=== PATIENT | male | born 1970 | race Caucasian/White ===

== ENCOUNTER 2021-08-25 11:39 | Outpatient (REF) | payer MEDICARE, MEDICAID, SELFPAY ==
[2021-08-25 12:26] LABS: COVID-19 Test Negative (Negative); IDNOW Serial# 08D9AD1C
== END 2021-08-25 11:40 | disposition home or self-care (01) ==
LOC: HO.LAB 11:39
PROVIDERS: Visit Provider Internal Medicine
DX: Z20.822 Contact with and (suspected) exposure to COVID-19 (principal)
CPT/HCPCS: 87635; C9803

== ENCOUNTER 2021-09-07 07:38 | Outpatient (REF) | payer MEDICARE, MEDICAID, SELFPAY ==
[2021-09-07 10:56] LABS: Alanine Aminotransferase 54 U/L (0-40); Albumin Level 4.4 g/dL (3.5-5.0); Alkaline Phosphatase 117 U/L (39-117); Anion Gap 12 (12-20); Aspartate Amino Transferase 35 U/L (5-37); Bilirubin Total 0.5 mg/dL (0.0-1.0); Blood Urea Nitrogen 14 mg/dL (9-16); Calcium 8.9 mg/dL (8.4-10.2); Carbon Dioxide 29 mmol/L (22-29); Chloride 101 mmol/L (96-108); Cholesterol 218 mg/dL; Estimated Glomerular Filt Rate 55; Glucose Fasting 83 mg/dL (60-99); HDL Cholesterol 58 mg/dL; LDL Cholesterol Calculated 142 mg/dl; Potassium 3.6 mmol/L (3.3-5.1); Sodium 138 mmol/L (135-145); Triglycerides 93 mg/dL
[2021-09-07 11:18] LABS: Prostate Specific Antigen 0.51 ng/mL (<0.05-4.0)
== END 2021-09-07 07:39 | disposition home or self-care (01) ==
LOC: HO.10HDL 07:38
PROVIDERS: PCP Physician Assistant; Visit Provider Nurse Practitioner Family
DX: Z13.1 Encounter for screening for diabetes mellitus (principal); Z12.5 Encounter for screening for malignant neoplasm of prostate; Z13.220 Encounter for screening for lipoid disorders
CPT/HCPCS: 36415; 80053; 80061; 84153

== ENCOUNTER 2021-09-28 11:21 | Day surgery (SDC) | payer MEDICARE, MEDICAID, SELFPAY ==
[2021-09-20 13:29] VITALS: BMI 25.0
--- NOTE | 2021-09-27 08:53 | HO.ANESPROP2 ---
Documented by User: Yenny Webster NP 09/27/21 08:54 HPI - Anesthesia Eval Consult details Narrative: 51yo M for Colonoscopy PMFSH Active Problems Active Problems: All Active Problems (Updated 09/20/21 @ 13:31 by Jessy Masters RN) Hypertension (Acute) OCD (obsessive compulsive disorder) (Acute) Anxiety (Acute) Adult general medical exam (Acute) Respiratory tract infection (Acute) Herpes simplex (Acute) Screening for prostate cancer (Acute) Screening for hyperlipidemia (Acute) Screening for colon cancer (Acute) Screening for diabetes mellitus (Acute) Past Medical History Medical History (Updated 09/20/21 @ 13:31 by Jessy Masters RN) Anxiety Asthma COVID-19 vaccine series completed HTN (hypertension) OCD (obsessive compulsive disorder) Recurrent cold sores Screening for colon cancer Screening for diabetes mellitus Screening for hyperlipidemia Screening for prostate cancer Family History Family History Father No problems noted. Mother No problems noted. Other Mental health disorder Surgical History Surgical History (Updated 09/20/21 @ 13:14 by Jessy Masters RN) History of esophagogastroduodenoscopy (EGD) Social History Social History Housing: House Alcohol intake: former Patient Tobacco Use Status: Former Tobacco user Quit Date: 1998 Tobacco use type: Cigarette Years Smoked: 10 Use of substances other than those prescribed or required for medical reasons: No Have you been hit, kicked, punched, or otherwise hurt by someone within the past year? If so, by whom?: No Are you DNR?: No Advance Directives: No Advance Directives Information Provided: Yes (brochure mailed) Advance Directives on File: No Recently lost weight without trying: No Eating poorly because of decreased appetite: No Nutrition Risks: No Nutritional Risk Poor oral hygiene: No (has dental crowns) service: No Current occupational status: unemployed and disabled Meds Allergies Allergy/AdvReac Type Severity Reaction Status Date / Time erythromycin base Allergy Intermediate Gastrointestinal Verified 09/20/21 13:27 Upset Penicillins Allergy Intermediate Hives Verified 09/20/21 13:27 Home Medications Medication Instructions Recorded Confirmed Last Taken Type buspirone 30 mg tablet 30 mg PO BID 12/08/20 09/28/21 09/28/21 History cholecalciferol (vitamin D3) 25 25 mcg PO DAILY 12/08/20 09/20/21 Unknown History mcg (1,000 unit) capsule clomipramine 25 mg capsule 25 mg PO BID 12/08/20 09/28/21 09/28/21 History clomipramine 75 mg capsule 150 mg PO BEDTIME 12/08/20 09/20/21 Unknown History fluvoxamine 100 mg tablet 250 mg PO DAILY 12/08/20 09/28/21 09/28/21 History hydroxyzine HCl 25 mg tablet 25 mg PO BID 12/08/20 09/20/21 Unknown History melatonin 3 mg tablet 3 mg PO BEDTIME PRN 12/08/20 09/20/21 Unknown History quetiapine 25 mg tablet 25 mg PO BEDTIME PRN 12/08/20 09/20/21 Unknown History quetiapine 400 mg tablet 400 mg PO BEDTIME 07/21/21 09/20/21 Unknown History Exam Exam Date and Time: September 27, 2021 0853 Height,Weight and Vital Signs: Height 5 ft 7.5 in Weight 73.482 kg Pertinent Lab Results Pertinent Lab Results: Laboratory Tests 09/07/21 07:45 Sodium 138 Potassium 3.6 Chloride 101 Carbon Dioxide 29 BUN 14 Creatinine 1.37 Assessment and Plan Assessment Anesthesia Assessment: Chart Reviewed Documented by User: Jaleel Isbell MD 09/28/21 16:48 HPI - Anesthesia Eval Consult details Narrative: 51yo M for Colonoscopy [facility] Past Medical History Medical History (Updated 09/20/21 @ 13:31 by Jessy Masters RN) Anxiety Asthma COVID-19 vaccine series completed HTN (hypertension) OCD (obsessive compulsive disorder) Recurrent cold sores Screening for colon cancer Screening for diabetes mellitus Screening for hyperlipidemia Screening for prostate cancer Family History Family History Father No problems noted. Mother No problems noted. Other Mental health disorder Family history of problems with anesthesia: No Surgical History Surgical History (Updated 09/20/21 @ 13:14 by Jessy Masters RN) History of esophagogastroduodenoscopy (EGD) History of Problems with Anesthesia: No Social History Social History Housing: House Alcohol intake: former Patient Tobacco Use Status: Former Tobacco user Quit Date: 1998 Tobacco use type: Cigarette Years Smoked: 10 Use of substances other than those prescribed or required for medical reasons: No Have you been hit, kicked, punched, or otherwise hurt by someone within the past year? If so, by whom?: No Are you DNR?: No Advance Directives: No Advance Directives Information Provided: Yes (brochure mailed) Advance Directives on File: No Recently lost weight without trying: No Eating poorly because of decreased appetite: No Nutrition Risks: No Nutritional Risk Poor oral hygiene: No (has dental crowns) service: No Current occupational status: unemployed and disabled Meds Allergies Allergy/AdvReac Type Severity Reaction Status Date / Time erythromycin base Allergy Intermediate Gastrointestinal Verified 09/20/21 13:27 Upset Penicillins Allergy Intermediate Hives Verified 09/20/21 13:27 Home Medications Medication Instructions Recorded Confirmed Last Taken Type buspirone 30 mg tablet 30 mg PO BID 12/08/20 09/28/21 09/28/21 History cholecalciferol (vitamin D3) 25 25 mcg PO DAILY 12/08/20 09/20/21 Unknown History mcg (1,000 unit) capsule clomipramine 25 mg capsule 25 mg PO BID 12/08/20 09/28/21 09/28/21 History clomipramine 75 mg capsule 150 mg PO BEDTIME 12/08/20 09/20/21 Unknown History fluvoxamine 100 mg tablet 250 mg PO DAILY 12/08/20 09/28/21 09/28/21 History hydroxyzine HCl 25 mg tablet 25 mg PO BID 12/08/20 09/20/21 Unknown History melatonin 3 mg tablet 3 mg PO BEDTIME PRN 12/08/20 09/20/21 Unknown History quetiapine 25 mg tablet 25 mg PO BEDTIME PRN 12/08/20 09/20/21 Unknown History quetiapine 400 mg tablet 400 mg PO BEDTIME 07/21/21 09/20/21 Unknown History Exam Airway Mallampati Class: III TM Dist: >3cm Neck ROM: Full Loose/Missing/Broken Teeth: Yes (Caps and chipped teeth . ) Heart: S1 and S2 Lungs: b/l breath sounds Assessment and Plan Assessment Anesthesia Assessment: Anesthesia Plan Discussed Final Anesthetic Review Family History of Problems with Anesthesia: No History of Problems with Anesthesia: No NPO: Yes ASA Class: II Final Preanesthetic Review: Meds/Allgs Chart Reviewed, Consent Obtained/Reviewed and Anes Risks/Benef Reviewed Patient Risk: Intermediate Procedure Risk: Intermediate Anesthetic Plan Anesthetic Plan: MAC: Disposition: Standard PACU
[2021-09-28 12:05] VITALS: BP 126/86; PULSE 107; RESP 18; TEMP 36.9; O2SAT 96
[2021-09-28] MEDS: Lactated Ringers 1,000 ML 100 ML IVCONT (12:35)
[2021-09-28] MEDS: Sodium Phosphate,Mono-Dibasic 133 ML ENEMA PR (12:51)
[2021-09-28 14:33] VITALS: BP 98/62; PULSE 78; RESP 16; TEMP 36.6; O2SAT 95
--- NOTE | 2021-09-28 14:34 | PM.OP ---
Brief Operative Note Date of Service: 09/28/21 Pre-op diagnosis: Screening Post-op diagnosis: other (Colon polyps, Poor prep) Procedure: Colonoscopy to the cecum with hot snare polypectomy x 3 Surgeon: Margarito Carmichael Anesthesia: MAC Was an Genetics Nurse used for this Procedure?: No Estimated blood loss (mL): 0 Pathology: other (A. Polyp at 40cm B. Polyp at 60cm C. Proximal ascending colon polyp) Condition: stable Disposition: PACU
[2021-09-28 14:48] VITALS: BP 108/75; PULSE 80; RESP 16; O2SAT 98
[2021-09-28 15:03] VITALS: BP 122/80; PULSE 92; RESP 18; O2SAT 98
--- NOTE | 2021-09-28 21:05 | OP_ITS ---
SURGEON: Margarito Carmicheal MD INDICATIONS: The patient presents for evaluation of colorectal cancer screening. Full consent has been obtained from him for this, including risks of bleeding and perforation. PREOPERATIVE DIAGNOSIS: Colorectal cancer screening. POSTOPERATIVE DIAGNOSIS: PROCEDURE PERFORMED: Colonoscopy to the cecum with hot snare polypectomy x 3. ESTIMATED BLOOD LOSS: COMPLICATIONS: ANESTHESIA: Medication used, monitored anesthesia care. ASSISTANTS: SPECIMENS: POSTOPERATIVE DIAGNOSES: Colorectal cancer screening, colon polyps, suboptimal prep. DESCRIPTION OF PROCEDURE: The patient was placed in the left lateral decubitus position. The digital rectal exam revealed no abnormalities. The Olympus video pediatric colonoscope was entered into the rectum and advanced to the cecum with the assistance of abdominal pressure. Unfortunately, prep throughout the colon was suboptimal due to a lot of liquid and some solid stool. I was able to suction and irrigate quite a bit in the cecum, which allowed some partial visualization of the cecum, which appeared normal. There was transillumination of light deep in the right lower quadrant. The ileocecal valve appeared normal. The scope was slowly withdrawn assessing all mucosal surfaces carefully. Again, preparation was very limited throughout the colon. However, in the region of the very proximal ascending colon was an approximately 1.5 cm, somewhat raised polypoid lesion. It appeared to be grossly adenomatous. It was not ulcerated nor friable. It was removed in piecemeal fashion with hot snare polypectomy, One piece piece was recovered by suction and the 2nd piece was recovered with the retrieval net. The polypectomy site probably still had some residual polyp tissue on it, but it was difficult to tell because of the poor prep at that point. Of note, as the scope was initially being advanced into the patient, I did remove approximately 10 to 12 mm polyps at 40 and 60 cm. Both of these polyps were recovered by suction. The polypectomy sites appeared clean, without any sign of residual polyp nor bleeding. After the scope was withdrawn with the retrieval net containing the other portion of the polyp in the proximal ascending colon, I opted not to go back in with the scope as at that point, the prep was too poor to really visualize the colon adequately.. Therefore, the procedure was terminated. He tolerated the procedure well and was returned to the recovery area in stable condition. IMPRESSION: 1. Colon polyps, status post hot snare polypectomy x 3. 2. Poor prep. PLAN: The results of the pathology will be checked. We will need to repeat his colonoscopy with a complete 2 day prep and hopefully have a better clean out. He did take 2 extra Dulcolax 2 days before this procedure, but did not use any MiraLAX 2 days before. He was advised not to use any aspirin and NSAIDs for least 1 week. We will be in touch with him to set up the followup colonoscopy with a better clean out. This has been discussed with the patient and his family. He was given written instructions in this regard as well. MD COLUMBA Burk/MONTEZ / [id number] MTDD
== END 2021-09-28 15:43 | disposition home or self-care (01) ==
PROVIDERS: PCP Physician Assistant; Visit Provider Internal Medicine
PROC: 0DJD8ZZ Inspection of Lower Intestinal Tract, Via Natural or Artificial Opening Endoscopic (ICD-10-PCS; CPT 45378; principal; 2021-09-28 12:40)
DX: Z12.11 Encounter for screening for malignant neoplasm of colon (principal); D12.2 Benign neoplasm of ascending colon; D12.4 Benign neoplasm of descending colon; D12.5 Benign neoplasm of sigmoid colon; K59.00 Constipation, unspecified; I10 Essential (primary) hypertension; F42.9 Obsessive-compulsive disorder, unspecified; J45.909 Unspecified asthma, uncomplicated; Z79.899 Other long term (current) drug therapy; Z88.0 Allergy status to penicillin; Z87.891 Personal history of nicotine dependence
CPT/HCPCS: 45385; 88305

== ENCOUNTER 2021-12-06 10:41 | Outpatient (REF) | payer MEDICARE, MEDICAID, SELFPAY ==
--- NOTE | 2021-12-06 11:01 | ECG_ITS ---
Test Reason : CK RHYTHM DUE TO MEDS Blood Pressure : / mmHG Vent. Rate : 101 BPM Atrial Rate : 101 BPM P-R Int : 152 ms QRS Dur : 094 ms QT Int : 350 ms P-R-T Axes : 056 069 078 degrees QTc Int : 453 ms Sinus tachycardia Otherwise normal ECG When compared with ECG of 23-JAN-2018 08:42, No significant change was found Referred By: SOLANGE ALEJANDRE Electronically Signed By:JEAN PAUL FREED
[2021-12-06 14:18] LABS: Alanine Aminotransferase 45 U/L (0-40); Albumin Level 4.3 g/dL (3.5-5.0); Alkaline Phosphatase 113 U/L (39-117); Anion Gap 12 (12-20); Aspartate Amino Transferase 29 U/L (5-37); Bilirubin Total 0.3 mg/dL (0.0-1.0); Blood Urea Nitrogen 15 mg/dL (9-16); Calcium 9.2 mg/dL (8.4-10.2); Carbon Dioxide 28 mmol/L (22-29); Chloride 101 mmol/L (96-108); Estimated Glomerular Filt Rate > 60; Glucose Random 97 mg/dL (60-115); Potassium 3.8 mmol/L (3.3-5.1); Sodium 137 mmol/L (135-145); Total Protein 6.7 g/dL (6.5-8.0)
== END 2021-12-06 10:42 | disposition home or self-care (01) ==
LOC: HO.10HDL 10:41
PROVIDERS: Visit Provider Nurse Practitioner Psychiatric/Mental Health
DX: R00.0 Tachycardia, unspecified (principal)
CPT/HCPCS: 36415; 80053; 93005

== ENCOUNTER 2022-02-10 08:36 | Day surgery (SDC) | payer MEDICARE, MEDICAID, SELFPAY ==
--- NOTE | 2022-02-09 13:39 | HO.ANESPROP2 ---
HPI - Anesthesia Eval Consult details Narrative: 51yo M for Colonoscopy s/p [place] 09/2021 with MAC PMFSH Active Problems Active Problems: All Active Problems (Updated 09/20/21 @ 13:31 by Jessy Masters RN) Hypertension (Acute) OCD (obsessive compulsive disorder) (Acute) Anxiety (Acute) Adult general medical exam (Acute) Respiratory tract infection (Acute) Herpes simplex (Acute) Screening for prostate cancer (Acute) Screening for hyperlipidemia (Acute) Screening for colon cancer (Acute) Screening for diabetes mellitus (Acute) Past Medical History Medical History Anxiety Asthma COVID-19 vaccine series completed HTN (hypertension) OCD (obsessive compulsive disorder) Recurrent cold sores Screening for colon cancer Screening for diabetes mellitus Screening for hyperlipidemia Screening for prostate cancer Family History Family History Father No problems noted. Mother No problems noted. Other Mental health disorder Family history of problems with anesthesia: No Surgical History Surgical History History of esophagogastroduodenoscopy (EGD) Hx of colonoscopy History of Problems with Anesthesia: No Social History Social History Housing: House Alcohol intake: former Patient Tobacco Use Status: Former Tobacco user Quit Date: 1998 Tobacco use type: Cigarette Years Smoked: 10 Use of substances other than those prescribed or required for medical reasons: No Are you DNR?: No Advance Directives: No Advance Directives Information Provided: Yes service: No Current occupational status: unemployed and disabled Meds Allergies Allergy/AdvReac Type Severity Reaction Status Date / Time erythromycin base Allergy Intermediate Gastrointestinal Verified 02/07/22 12:54 Upset Penicillins Allergy Intermediate Hives Verified 02/07/22 12:54 Home Medications Medication Instructions Recorded Confirmed Last Taken Type buspirone 30 mg tablet 30 mg PO BID 12/08/20 02/07/22 09/28/21 History cholecalciferol (vitamin D3) 25 25 mcg PO DAILY 12/08/20 02/07/22 Unknown History mcg (1,000 unit) capsule clomipramine 25 mg capsule 25 mg PO BID 12/08/20 02/07/22 09/28/21 History clomipramine 75 mg capsule 150 mg PO BEDTIME 12/08/20 02/07/22 Unknown History fluvoxamine 100 mg tablet 250 mg PO DAILY 12/08/20 02/07/22 09/28/21 History hydroxyzine HCl 25 mg tablet 25 mg PO BID 12/08/20 02/07/22 Unknown History melatonin 3 mg tablet 3 mg PO BEDTIME PRN Insomnia 12/08/20 02/07/22 Unknown History quetiapine 25 mg tablet 25 mg PO BEDTIME PRN mood 12/08/20 02/07/22 Unknown History stabilizer quetiapine 400 mg tablet 400 mg PO BEDTIME 07/21/21 02/07/22 Unknown History Exam Exam Date and Time: February 09, 2022 1339 Pertinent Lab Results Pertinent Lab Results: Laboratory Tests 12/06/21 10:50 Sodium 137 Potassium 3.8 Chloride 101 Carbon Dioxide 28 BUN 15 Creatinine 1.21 Assessment and Plan Assessment Anesthesia Assessment: Chart Reviewed Final Anesthetic Review Family History of Problems with Anesthesia: No History of Problems with Anesthesia: No
[2022-02-10 08:51] VITALS: BP 117/78; PULSE 102; RESP 16; TEMP 36.6; O2SAT 99; BMI 26.3
[2022-02-10 09:01] VITALS: BMI 26.3
--- NOTE | 2022-02-10 09:03 | P.CONAN_ITS ---
[facility] Active Problems Active Problems: All Active Problems (Updated 09/20/21 @ 13:31 by Jessy Masters RN) Hypertension (Acute) OCD (obsessive compulsive disorder) (Acute) Anxiety (Acute) Adult general medical exam (Acute) Respiratory tract infection (Acute) Herpes simplex (Acute) Screening for prostate cancer (Acute) Screening for hyperlipidemia (Acute) Screening for colon cancer (Acute) Screening for diabetes mellitus (Acute) Past Medical History Medical History Anxiety Asthma COVID-19 vaccine series completed HTN (hypertension) OCD (obsessive compulsive disorder) Recurrent cold sores Screening for colon cancer Screening for diabetes mellitus Screening for hyperlipidemia Screening for prostate cancer Family History Family History Father No problems noted. Mother No problems noted. Other Mental health disorder Family history of problems with anesthesia: No Surgical History Surgical History History of esophagogastroduodenoscopy (EGD) Hx of colonoscopy History of Problems with Anesthesia: No Social History Social History Housing: House Alcohol intake: former Patient Tobacco Use Status: Former Tobacco user Quit Date: 1998 Tobacco use type: Cigarette Years Smoked: 10 Use of substances other than those prescribed or required for medical reasons: No Are you DNR?: No Advance Directives: No Advance Directives Information Provided: Yes service: No Current occupational status: unemployed and disabled Meds Allergies Allergy/AdvReac Type Severity Reaction Status Date / Time erythromycin base Allergy Intermediate Gastrointestinal Verified 02/07/22 12:54 Upset Penicillins Allergy Intermediate Hives Verified 02/07/22 12:54 Active Medications: Current Medications Albuterol Sulfate (Albuterol Sulfate (0.083%) 2.5 Mg/3 Ml Vial.Neb) 2.5 mg INHALE ONCE PRN PRN Reason: Shortness of Breath/Wheezing Lactated Ringer's (Lr) 1,000 mls @ 100 mls/hr IVCONT .Q10H DOLORES Sodium Biphosphate/Sodium Phosphate (Sodium Phosphate,Patrick-Dibasic 133 Ml Enema) 133 ml CO ONCE PRN PRN Reason: Poor Colonoscopy Prep Results Home Medications Medication Instructions Recorded Confirmed Last Taken Type buspirone 30 mg tablet 30 mg PO BID 12/08/20 02/07/22 09/28/21 History cholecalciferol (vitamin D3) 25 25 mcg PO DAILY 12/08/20 02/07/22 Unknown Histor y mcg (1,000 unit) capsule clomipramine 25 mg capsule 25 mg PO BID 12/08/20 02/07/22 09/28/21 History clomipramine 75 mg capsule 150 mg PO BEDTIME 12/08/20 02/07/22 Unknown History fluvoxamine 100 mg tablet 250 mg PO DAILY 12/08/20 02/07/22 09/28/21 History hydroxyzine HCl 25 mg tablet 25 mg PO BID 12/08/20 02/07/22 Unknown History melatonin 3 mg tablet 3 mg PO BEDTIME PRN Insomnia 12/08/20 02/07/22 Unknown History quetiapine 25 mg tablet 25 mg PO BEDTIME PRN mood 12/08/20 02/07/22 Unknown History stabilizer quetiapine 400 mg tablet 400 mg PO BEDTIME 07/21/21 02/07/22 Unknown History Exam Exam Date and Time: February 10, 2022 0903 Height,Weight and Vital Signs: Height 5 ft 7 in Weight 76.204 kg Last Vital Signs Temp 97.9 F 02/10/22 08:51 Pulse 102 H 02/10/22 08:51 Resp 16 02/10/22 08:51 BP 117/78 02/10/22 08:51 Pulse Ox 99 02/10/22 08:51 O2 Del Method 02/10/22 08:51 Airway Mallampati Class: II TM Dist: >3cm Neck ROM: Full Assessment and Plan Assessment Anesthesia Assessment: Anesthesia Plan Discussed and Chart Reviewed Final Anesthetic Review Family History of Problems with Anesthesia: No History of Problems with Anesthesia: No NPO: Yes ASA Class: II Final Preanesthetic Review: No Changes in Pt Med Stat, Meds/Allgs Chart Reviewed, Consent Obtained/Reviewed and Anes Risks/Benef Reviewed Patient Risk: Low Procedure Risk: Low Anesthetic Plan Anesthetic Plan: MAC: Disposition: Standard PACU
[2022-02-10] MEDS: Sodium Phosphate,Mono-Dibasic 133 ML ENEMA PR (09:05)
[2022-02-10 09:13] VITALS: BP 117/78; PULSE 102; RESP 16; TEMP 36.6; O2SAT 99
[2022-02-10] MEDS: Lactated Ringers 1,000 ML 100 ML IVCONT (09:42)
[2022-02-10 11:16] VITALS: BP 106/70; PULSE 82; RESP 14; TEMP 36.6; O2SAT 99
--- NOTE | 2022-02-10 11:18 | PM.OP ---
Brief Operative Note Date of Service: 02/10/22 Pre-op diagnosis: Screening Post-op diagnosis: other (Polyp) Procedure: Colonoscopy to the cecum with bx/removal of polyp Surgeon: Margarito Carmichael Anesthesia: MAC Was an Child And Adolescent Therapist used for this Procedure?: No Estimated blood loss (mL): 2.0 Pathology: other (A. Rectal polyp) Condition: stable Disposition: PACU
[2022-02-10 11:31] VITALS: BP 115/79; PULSE 86; RESP 16; TEMP 36.6; O2SAT 98
--- NOTE | 2022-02-10 23:00 | OP_ITS ---
SURGEON: Margarito Carmichael MD INDICATIONS: The patient presents for followup of colorectal cancer screening and personal history of colon polyps. Full consent has been obtained from him for this, including risks of bleeding and perforation. PREOPERATIVE DIAGNOSIS: POSTOPERATIVE DIAGNOSIS: PROCEDURE PERFORMED: Colonoscopy to the cecum with biopsy and removal of polyp. ESTIMATED BLOOD LOSS: COMPLICATIONS: ANESTHESIA: Monitored anesthesia care. ASSISTANTS: SPECIMENS: PREOPERATIVE DIAGNOSES: Colorectal cancer screening and personal history of colon polyps. POSTOPERATIVE DIAGNOSES: Colorectal cancer screening and personal history of colon polyps, colon polyp, diverticulosis, and internal hemorrhoids. DESCRIPTION OF PROCEDURE: The patient was placed in the left lateral decubitus position. The digital rectal exam revealed no abnormalities. The Olympus video pediatric colonoscope was entered into the rectum and advanced to the cecum with the assistance of abdominal wall pressure. Once in the cecum, I did identify a normal-appearing cecal pouch with appendiceal orifice and a normal-appearing ileocecal valve. The entire cecum was well visualized and appeared normal. The ileocecal valve appeared normal. The scope was slowly withdrawn assessing all mucosal surfaces carefully. Preparation was excellent after his 2-day preparation. There was no sign of any colitis nor angiodysplasia. There was a mild amount of sigmoid diverticulosis. The only polyp I visualized was an approximately 5 mm polyp in the rectum, which was biopsied and completely removed with the cold biopsy forceps. The scope was retroflexed visualizing some small internal hemorrhoids as well. The scope was straightened and withdrawn from the patient. He tolerated the procedure well and was returned to recovery area in stable condition. IMPRESSION: 1. Rectal polyp. 2. Diverticulosis. 3. Internal hemorrhoids. PLAN: Given his previous findings with the larger adenomatous polyps, I would recommend a repeat colonoscopy in 3 years for further screening and surveillance. He will otherwise see me on a p.r.n. basis. MD COLUMBA Burk/MONTEZ / [id number] NENITA
== END 2022-02-10 12:09 | disposition home or self-care (01) ==
PROVIDERS: PCP Physician Assistant; Visit Provider Internal Medicine
PROC: 0DJD8ZZ Inspection of Lower Intestinal Tract, Via Natural or Artificial Opening Endoscopic (ICD-10-PCS; CPT 45378; principal; 2022-02-10 09:30)
DX: Z12.11 Encounter for screening for malignant neoplasm of colon (principal); Z86.010 Personal history of colon polyps; K62.1 Rectal polyp; K57.30 Diverticulosis of large intestine without perforation or abscess without bleeding; K64.8 Other hemorrhoids; K59.00 Constipation, unspecified; I10 Essential (primary) hypertension; J45.909 Unspecified asthma, uncomplicated; F42.9 Obsessive-compulsive disorder, unspecified; F41.1 Generalized anxiety disorder; Z79.899 Other long term (current) drug therapy; Z87.891 Personal history of nicotine dependence; Z88.0 Allergy status to penicillin; Z88.1 Allergy status to other antibiotic agents
CPT/HCPCS: 45380; 88305

== ENCOUNTER 2023-04-26 11:37 | Outpatient (AMB) | payer MEDICARE, MEDICAID, SELFPAY ==
[2023-04-26 11:39] VITALS: BP 114/78; PULSE 102; BMI 24.5
--- NOTE | 2023-04-26 11:39 | A.OFFPC_ITS ---
Vital Signs 04/26/23 11:39 Height 5 ft 7 in Weight 156 lb 4 oz BMI 24.5 Blood Pressure Location Lt brachial Position Sitting Pulse Source Pulse Oximeter Oxygen Delivery Method Room Air Intake Visit Reasons: AWV Theater Manager Required: No Accompanied by: Self / Same As Patient Allergies erythromycin base Allergy (Intermediate, Verified 04/26/23 11:40) Gastrointestinal Upset Penicillins Allergy (Intermediate, Verified 04/26/23 11:40) Hives Tobacco use date assessed: 08/01/22 [facility] Medical History Anxiety Asthma COVID-19 vaccine series completed HTN (hypertension) OCD (obsessive compulsive disorder) Recurrent cold sores Screening for colon cancer Screening for diabetes mellitus Screening for hyperlipidemia Screening for prostate cancer Surgical History Hx of colonoscopy History of esophagogastroduodenoscopy (EGD) Family History Father No problems noted. Mother No problems noted. Other Mental health disorder Social History Housing: House Alcohol intake: former Patient Tobacco Use Status: Former Tobacco user Quit Date: 1998 Tobacco use type: Cigarette Years Smoked: 10 service: No Current occupational status: unemployed and disabled Cognitive needs: No Hearing needs: No Vision needs: No Questionnaire Thrive Questionnaire Date Thrive assessed: 08/01/22 ABDULLAHI-7 AMB Questionnaire ABDULLAHI-7 Date ABDULLAHI - 7 assessed: 04/26/23 Feeling nervous, anxious, or on edge: 3 = Nearly every day Not being able to stop or control worryin = Nearly every day Worrying too much about different things: 3 = Nearly every day Trouble relaxin = Nearly every day Being so restless that it is hard to sit still: 1 = Several days Becoming easily annoyed or irritable: 1 = Several days Feeling afraid as if something awful might happen: 3 = Nearly every day Total ABDULLAHI-7 score (0-4 normal; 5-9 mild; 10-14 moderate; 15-21 severe): 17 Source: Developed by Drs. Margarito Chavarria, Christiana Cardona, Khris Macias and colleagues, with an educational amee from [employer]. ABDULLAHI-7 Assessment Billing ABDULLAHI-7 Assessment Tool: ABDULLAHI-7 Assessment 74612 Physical exam (Primary Care) Vital Signs: Oxygen Delivery Method Room Air 04/26/23 11:39 Tobacco/Smoking Status: Tobacco use Status Tobacco use date assessed 08/01/22 08/01/22 08:40 Patient Tobacco Use Status Former Tobacco user 08/01/22 08:40 Tobacco use type Cigarette 08/01/22 08:40 Thrive Assessment: Date of Thrive Assessment Date Thrive assessed 08/01/22 08/01/22 08:40 Coding Additional Codes ABDULLAHI-7 Assessment Billing - ABDULLAHI-7 Assessment Tool: ABDULLAHI-7 Assessment 54110 ([id number])
--- NOTE | 2023-04-26 11:59 | A.OFFVIS_ITS ---
Intake Vital Signs 04/26/23 11:39 04/26/23 12:06 Height 5 ft 7 in Weight 156 lb 4 oz BMI 24.5 24.5 BP 114/78 Blood Pressure Location Lt brachial Position Sitting Pulse 102 H Pulse Source Pulse Oximeter Oxygen Delivery Method Room Air Intake Visit Reasons: AWV Allergies erythromycin base Allergy (Intermediate, Verified 04/30/23 07:57) Gastrointestinal Upset Penicillins Allergy (Intermediate, Verified 04/30/23 07:57) Hives Medication List - Last Reconciled 04/30/23 by Jude Hurley PA-C albuterol sulfate 90 mcg/actuation (ProAir HFA) 2 puffs inhalation Q6H PRN 30 days amlodipine 5 mg PO DAILY blood pressure monitor As directed buspirone 30 mg PO BID cholecalciferol (vitamin D3) 25 mcg PO DAILY clomipramine 150 mg PO BEDTIME clomipramine 25 mg PO BID fluvoxamine 250 mg PO DAILY hydroxyzine HCl 25 mg PO BID melatonin 3 mg PO BEDTIME PRN pantoprazole 40 mg PO BID quetiapine 25 mg PO BEDTIME PRN quetiapine 400 mg PO BEDTIME risperidone 4 mg PO BID 30 days valacyclovir (Valtrex) 1,000 mg PO BID 7 days HPI AWV HPI Details Patient is a 53-year-old male here today for annual wellness visit. Patient has a past history significant for OCD, hypertension, anxiety. [place] of care- discussed patient's [place] of care. Also discussed end of life planning and was given a MOLST form to discuss with his family . HPI Comments History of Present Illness Details reviewed past medical history- yes reviewed surgical / hospitalization history- yes reviewed current medications- yes reviewed family history- yes home safety throw rugs? grab bars? raised toilet seat? working smoke detectors? activities of daily living difficulty bathing or showering? difficulty dressing? difficulty using the toilet? difficulty getting in and out of bed? difficulty walking? receives help from other person's with any of the above tasks? instrumental activities of daily living uses telephone - gets to place out of walking distance- go shopping for groceries- repairs own meals- does own minor home maintenance- does own laundry- does own housework- manages own money- currently takes medication- end of life planning discussed advanced directives- yes advanced directives on file? discussed wishes expressed in advanced directives. fall risk have you had any falls with injuries in the past year? have you had 2 or more falls in the past year? fall risk assessment: [facility] Medical History Anxiety Asthma COVID-19 vaccine series completed HTN (hypertension) OCD (obsessive compulsive disorder) Recurrent cold sores Screening for colon cancer Screening for diabetes mellitus Screening for hyperlipidemia Screening for prostate cancer Surgical History Hx of colonoscopy History of esophagogastroduodenoscopy (EGD) Family History Father No problems noted. Mother No problems noted. Other Mental health disorder Social History Housing: House Alcohol intake: former Patient Tobacco Use Status: Former Tobacco user Quit Date: 1998 Tobacco use type: Cigarette Years Smoked: 10 service: No Current occupational status: unemployed and disabled Cognitive needs: No Hearing needs: No Vision needs: No Questionnaire Medicare Wellness Checkup What [age] 65-69 What gender do you identify with?: male During the past 4 weeks, how much have you been bothered by emotional problems such as feeling anxious, depressed, irritable, sad or downhearted, and blue?: extremely During the past 4 weeks, has your physical & emotional health limited your social activities with family, friends, neighbors, or groups?: quite a bit During the past 4 weeks, how much bodily pain have you generally had?: moderate pain During the past 4 weeks, was someone available to help you if you needed & wanted help?: yes, as much as I wanted During the past 4 weeks, what was the hardest physical activity you could do for at least 2 minutes?: moderate Can you get to places out of walking distance without help? (For eg., can you travel alone on buses, taxis or drive your car?): Yes Can you go shopping for groceries or clothes without someone's help?: Yes Can you prepare your own meals?: Yes Can you do your housework without help?: Yes Can you handle your own money without help?: No During the past 4 weeks, how would you rate your health in general?: fair During the past 4 weeks how have things been going for you?: pretty well Are you having difficulties driving your car?: no Do you always fasten your seat belt when you are in a car?: yes, usually During past 4 weeks, have you been bothered by the following: never: Falling or dizzy when standing up, Sexual problems?, Teeth or denture problems? and Problems using the telephone?, seldom: Trouble eating well? and often: Tiredness or fatigue? Have you fallen 2 or more times in the past year?: No Are you afraid of falling?: No Are you a smoker?: no During the past 4 weeks, how many drinks of wine, beer, or other alcoholic beverages did you have?: 2-5 drinks per week Do you exercise for about 20 minutes 3 or more times a week?: no, I usually do not exercise this much Have you been given information to help with the following?: no: Hazards in your house that might hurt you? and no: Keeping track of your medications? How often do you have trouble taking medicines the way you have been told to take them?: I always take medicine as prescribed How confident are you that you can control & manage most of your health problems?: not very confident What is your race?: White Mini Mental State Exam (MMSE) Orientation What is the (year) (season) (date) (day) (month)?: year, season and date Where are we (state) (county) (town or city) (hospital) (floor)?: state, county and town or city Attention & Calculation (CHOOSE ONE) Spell WORLD backwards (DLROW): 5 letters Score Score: 11 Activity of Daily Living Bathing - sponge bath, tub bath or shower: receives no assistance (gets in/out by self, if usual bathing means Dressing - getting clothes from closets & drawers, including inner/outer garments & fasteners.: gets clothes & gets completely dressed without help Toileting - going to the 'toilet room' for urine/bowel elimination & cleaning self/arranging clothes: goes to toilet room, cleans self, arranges clothes without help Transfer: moves in & out of bed and chair without help (may use support object) Continence: controls urination/bowel movements completely by self Feeding: feeds self without help Total Score: 0 Information obtained from: patient Using telephone: independent Traveling: independent Shopping: independent Preparing meals: independent Housework: independent Taking medicine: independent Managing money: independent PHQ-9 Over the last 2 weeks, how often have you been bothered by any of the following problems? 2. Feeling down, depressed, or hopeless: several days 3. Trouble falling or staying asleep, or sleeping too much: nearly every day 4. Feeling tired or having little energy: several days 5. Poor appetite or overeating: not at all 6. Feeling bad about yourself - or that you are a failure or have let yourself or your family down: several days 7. Trouble concentrating on things, such as reading the newspaper or watching television: several days 8. Moving or speaking so slowly that other people could have noticed. Or the opposite - being so fidgety or restless that you have been moving around a lot more than usual: not at all 9. Thoughts that you would be better off or of hurting yourself in some way: not at all Depression Screening Interpretation: Positive Depression Screening Follow-up: Existing condition and In treatment Depression Screening Done: Yes 85563 - PHQ-9 Billing: Patient declined-do not bill Source: Developed by Drs. Margarito Chavarria, Christiana Cardona, Khris Macias and colleagues, with an educational amee from [employer]. Physical Exam Vital Signs: Last Vital Signs Pulse 102 H 04/26/23 11:39 BP 114/78 04/26/23 11:39 Oxygen Delivery Method Room Air 04/26/23 11:39 BMI result Body Mass Index 24.5 HEENT Other: hearing screening whisper test- pass Eyes Other: vision screening- 20/20 OS/OD/OU Other: urinary incontinence? no Neuro Other: balance Romberg- normal tandem walk test- able walk-in turned test- able rise from sit to stand- within 2 seconds Immunizations Boostrix Tdap 2.5 Lf unit-8 mcg-5 Lf/0.5 mL intramuscular syringe Performing Provider: Jude Hurley PA-C [facility] Administered by: Elsie Benavides CMA on 04/26/23 12:33 Dose Route Admin Location Dispensed Lot Number Expiration Date NDC Statistical Consultant 0.5 mL IM Left Deltoid 0.5 mL [id number] 05/16/25 [id number] [employer] VIS Given Date VIS Provided VIS Publication Date 04/26/23 Single Vaccine 21 Eligibility Eligibility Date Funding Source Not [facility] Eligible 04/26/23 Private Assessment & Plan Assessment & Plan (1) Medicare annual wellness visit, initial: Code(s): Z00.00 - Encounter for general adult medical examination without abnormal findings Orders: Orders Microalbumin, Random (w Creat) 04/26/23 E78.9 - Disorder of lipoprotein metab olism, unspecified, I10 - Essential (primary) hypertension Comprehensive [place]. Panel Fast 04/26/23 E78.9 - Disorder of lipoprotein metabolism, unspecified, I10 - Essential (primary) hypertension Complete Blood Count no Diff 04/26/23 E78.9 - Disorder of lipoprotein metabolism, unspecified, I10 - Essential (primary) hypertension Prostate Specific Antigen Scr 04/26/23 E78.9 - Disorder of lipoprotein metabolism, unspecified, I10 - Essential (primary) hypertension, Z12.5 - Encounter for screening for malignant neoplasm of prostate TDaP Immunization 04/26/23 I10 - Essential (primary) hypertension, Z23 - Encounter for immunization Lipid Panel 04/26/23 E78.9 - Disorder of lipoprotein metabolism, unspecified, I10 - Essential (primary) hypertension Medications: Refilled amlodipine 5 mg PO DAILY 90 tabs 2RF I10 - Essential (primary) hypertension Coding Level of Care Code Medicare First (G0438) Diagnoses Medicare annual wellness visit, initial Z00.00 CPT Codes Advance Care Planning - Time spent: 1-15 minutes, not on file ([id number]) Advance Care Planning Advance Care Planning discussion: Exists, not on file Date of discussion: 04/26/23 Forms completed: MOLST Time spent: 1-15 minutes, not on file
[2023-04-26 12:06] VITALS: BMI 24.5
== END 2023-04-26 12:38 | disposition home or self-care (01) ==
PROVIDERS: PCP Physician Assistant; Visit Provider Physician Assistant
DX: Z23 Encounter for immunization (principal); I10 Essential (primary) hypertension
CPT/HCPCS: 1124F; 90471; 90715; G0438; G0439

== ENCOUNTER 2023-10-29 10:02 | Outpatient (AMB) | payer MEDICARE, MEDICAID, SELFPAY ==
[2023-10-29 10:30] VITALS: BP 108/66; PULSE 90; O2SAT 96; BMI 24.3
--- NOTE | 2023-10-29 10:30 | A.OFFPC_ITS ---
Vital Signs 10/29/23 10:30 Height 5 ft 7 in Weight 155 lb BMI 24.3 BP 108/66 Blood Pressure Location Lt brachial Position Sitting Pulse 90 Pulse Source Pulse Oximeter Pulse Oximetry (%) 96 Oxygen Delivery Method Room Air Intake Visit Reasons: f/u HTN/ OCD Stay Cutter Required: No Accompanied by: Self / Same As Patient Allergies erythromycin base Allergy (Intermediate, Verified 10/29/23 10:44) Gastrointestinal Upset Penicillins Allergy (Intermediate, Verified 10/29/23 10:44) Hives Medication List - Last Reconciled 10/29/23 by Jude Hurley PA-C albuterol sulfate 90 mcg/actuation (ProAir HFA) 2 puffs inhalation Q6H PRN 30 days amlodipine 5 mg PO DAILY blood pressure monitor As directed buspirone 30 mg PO BID cholecalciferol (vitamin D3) 25 mcg PO DAILY clomipramine 150 mg PO BEDTIME clomipramine 25 mg PO BID fluvoxamine 250 mg PO DAILY hydroxyzine HCl 25 mg PO BID melatonin 3 mg PO BEDTIME PRN pantoprazole 40 mg PO BID quetiapine 25 mg PO BEDTIME PRN quetiapine 400 mg PO BEDTIME risperidone 4 mg PO BID 30 days valacyclovir (Valtrex) 1,000 mg PO BID 7 days Tobacco use date assessed: 10/29/23 Dental Screening Dental Screen Date: 10/29/23 Did you have a dental visit in the last 12 months?: Yes Did you have a dental problem in the last 6 months where you did not have access to dental care?: No Was dental information given to patient?: Patient has dentist HPI f/u HTN/ OCD HPI Details Patient is a 53-year-old male here today for follow-up visit..? Patient has a past medical history significant for obsessive-compulsive disorder, hypertension, anxiety. OCD: Continues to see a mental health therapist at [facility]. Does feel stable on the meds he is on. He is followed by a psychiatrist whom recently increased his Seroquel and feels better with his sleep. .. Hypertension:? He does not regularly check his blood pressure at home.? There were some concerns of high blood pressure at his psychiatrist office. Today in office blood pressure acceptable. Does not have any readings to goal for today. He denies any chest discomfort, headaches her vision issues. Continues on amlodipine 5 mg. PFSH Medical History [place] tear COVID-19 vaccine series completed Recurrent cold sores Asthma Anxiety HTN (hypertension) OCD (obsessive compulsive disorder) Screening for prostate cancer Screening for hyperlipidemia Screening for colon cancer Screening for diabetes mellitus Surgical History Hx of colonoscopy History of esophagogastroduodenoscopy (EGD) Family History Father No problems noted. Mother No problems noted. Other Mental health disorder Social History Housing: House Alcohol intake: former Patient Tobacco Use Status: Former Tobacco user Quit Date: 1998 Tobacco use type: Cigarette Years Smoked: 10 e-Cigarette/Vaping Use: Never Used service: No Current occupational status: unemployed and disabled Cognitive needs: No Hearing needs: No Vision needs: No Questionnaire PHQ-9 Over the last 2 weeks, how often have you been bothered by any of the following problems? 21833 - PHQ-9 Billing: Patient declined-do not bill Source: Developed by Drs. Margarito Chavarria, Khris Issa and colleagues, with an educational amee from [facility]. Thrive Questionnaire Date Thrive assessed: 08/01/22 ABDULLAHI-7 AMB Questionnaire ABDULLAHI-7 Date ABDULLAHI - 7 assessed: 10/29/23 Source: Developed by Christiana Galvez Kurt Kroenke and colleagues, with an educational amee from [facility]. ABDULLAHI-7 Assessment Billing ABDULLAHI-7 Assessment Tool: pt declined-do not bill Review of Systems Const Denies headache(s) Eyes Denies loss of vision ENT Denies vertigo, Denies dizziness, Denies headache(s) and Denies sore throat Card Denies chest pain, Denies leg edema and Denies lightheadedness Resp Denies cough, Denies hemoptysis and Denies wheezing GI Denies abdominal pain, Denies melena, Denies constipation, Denies diarrhea and Denies vomiting Denies dysuria, Denies urinary frequency and Denies urinary urgency Musc Denies arthralgias, Denies joint swelling, Denies numbness and Denies tingling Neuro Denies Abnormal speech present, Denies behavioral changes, Denies vertigo, Denies dizziness, Denies headache(s), Denies loss of vision, Denies memory loss, Denies numbness and Denies tingling Psych Denies anxiety, Denies behavioral changes, Denies depression, Denies memory loss and Denies panic attacks Boogie/Lymph Denies easy bleeding and Denies easy bruising Aller/Immun Denies wheezing Physical exam (Primary Care) Vital Signs: Last Vital Signs Pulse 90 10/29/23 10:30 BP 108/66 10/29/23 10:30 Pulse Ox 96 10/29/23 10:30 Oxygen Delivery Method Room Air 10/29/23 10:30 BMI result Body Mass Index 24.3 Tobacco/Smoking Status: Tobacco use Status Tobacco use date assessed 10/29/23 10/29/23 10:35 Patient Tobacco Use Status Former Tobacco user 10/29/23 10:35 Tobacco use type Cigarette 10/29/23 10:35 e-Cigarette/Vaping Use Never Used 10/29/23 10:35 Thrive Assessment: Date of Thrive Assessment Date Thrive assessed 08/01/22 10/29/23 10:35 Const General: healthy appearing, no acute distress, alert and awake Nutritional Appearance: well nourished Orientation/consciousness: oriented to person, oriented to place and oriented to time HENMT Ears: TM's normal bilaterally General nose exam: Normal nasal mucous membranes and turbinates present Eyes Conjunctivae: conjunctivae normal Sclerae: sclerae normal Pupils: Equal, round and reactive pupils present Neck Neck: Yes no lymphadenopathy and Yes no JVD Thyroid: Thyroid normal Carotids: no bruits Resp Effort & Inspection: normal respiratory effort and not tachypneic Auscultation: no crackles, no rales, no rhonchi and no wheezes Cardio Rate: regular rate Rhythm: regular rhythm Heart sounds: no murmurs and normal S1 and S2 GI Palpation (GI): Soft to palpation, nontender, no hepatomegaly and no splenomegaly Auscultation: normal bowel sounds Skin General skin exam: no rashes or lesions noted and dry skin Neuro General: oriented to person, oriented to place and oriented to time Cranial nerves: Yes Equal, round and reactive pupils present Speech: No Abnormal speech present Gait exam (Neuro): Normal gait present Motor exam (neuro): no tremor noted Extrem Right upper extremity: full ROM Left upper extremity: full ROM Right lower extremity: full ROM; no edema Left lower extremity: full ROM; no edema Psych Mental Status: mental status grossly normal Speech and movement: Normal speech and movement present Affect: normal affect Attitude: cooperative Thought process: Normal thought process present Assessment and Plan Assessment & Plan (1) Hypertension: Code(s): I10 - Essential (primary) hypertension Qualifiers: Hypertension type: unspecified Qualified Code(s): I10 - Essential (primary) hypertension Plan: Patient has not been monitoring his blood pressure at home. Continues on amlodipine without any side effects. Advised patient to monitor blood pressure at home with goal blood pressure to be below 140/90. (2) OCD (obsessive compulsive disorder): Code(s): F42.9 - Obsessive-compulsive disorder, unspecified Qualifiers: Obsessive-compulsive disorder type: unspecified Qualified Code(s): F42.9 - Obsessive-compulsive disorder, unspecified Plan: Continues to follow mental health therapist and mental health med provider. He feels he is stable on the current medication regime he takes for psychiatric issues. (3) Borderline high cholesterol: Code(s): E78.9 - Disorder of lipoprotein metabolism, unspecified Plan: Patient does have a history of borderline high total cholesterol. Has been making lifestyle/ dietary modifications . Will recheck fasting lipid panel. Goal total cholesterol to be below 200 Patient Instructions: Goal: Blood pressure to remain below 140/90 Barriers: Adherence to healthy eating habits and physical activity Coding Level of Care Code Est Pt Level 4 (51601) Diagnoses Hypertension, unspecified type I10 Hypertension type: unspecified Obsessive-compulsive disorder, unspecified type F42.9 Obsessive-compulsive disorder type: unspecified Borderline high cholesterol E78.9
== END 2023-10-29 10:52 | disposition home or self-care (01) ==
PROVIDERS: PCP Physician Assistant; Visit Provider Physician Assistant
DX: I10 Essential (primary) hypertension (principal); F42.9 Obsessive-compulsive disorder, unspecified; E78.9 Disorder of lipoprotein metabolism, unspecified
CPT/HCPCS: 99214

== ENCOUNTER 2024-01-10 07:30 | Outpatient (REF) | payer MEDICARE, MEDICAID, SELFPAY ==
[2024-01-10 08:25] LABS: Hematocrit 41.1 % (42.0-52.0); Hemoglobin 14.3 g/dl (14.0-18.0); Mean Corpuscular HGB Conc 34.8 g/dl (31.0-36.0); Mean Corpuscular Hemoglobin 29.7 pg (27.0-33.0); Mean Corpuscular Volume 85.4 fL (80.0-98.0); Mean Platelet Volume 9.6 fL (9.4-12.4); Platelet Count 195 X10*3/uL (160-400); Red Blood Count 4.81 X10*6/uL (4.60-5.80); Red Cell Distribution Width 12.2 % (11.0-16.0); White Blood Count 7.3 X10*3/uL (4.8-10.8)
[2024-01-10 08:46] LABS: Alanine Aminotransferase 31 U/L (0-40); Albumin Level 4.3 g/dL (3.5-5.0); Alkaline Phosphatase 103 U/L (39-117); Anion Gap 13 (12-20); Aspartate Amino Transferase 26 U/L (5-37); Bilirubin Total 0.3 mg/dL (0.0-1.0); Blood Urea Nitrogen 13 mg/dL (9-16); Calcium 8.9 mg/dL (8.4-10.2); Carbon Dioxide 27 mmol/L (22-29); Chloride 105 mmol/L (96-108); Cholesterol 206 mg/dL (<200); Estimated Glomerular Filt Rate > 60; Glucose Fasting 92 mg/dL (60-99); HDL Cholesterol 59 mg/dL (>40); LDL Cholesterol Calculated 134 mg/dL (<100); Potassium 3.9 mmol/L (3.3-5.1); Sodium 141 mmol/L (135-145); Total Protein 6.8 g/dL (6.5-8.0); Triglycerides 68 mg/dL (<150)
[2024-01-10 08:53] LABS: Creatinine Urine 89.29 mg/dL; Microalbumin Urine < 5.0 mg/L
[2024-01-10 08:59] LABS: Prostate Specific Antigen Scr 0.64 ng/mL (<0.05-4.0)
== END 2024-01-10 07:31 | disposition home or self-care (01) ==
LOC: HO.LAB 07:30
PROVIDERS: PCP Physician Assistant; Visit Provider Physician Assistant
DX: I10 Essential (primary) hypertension (principal); E78.9 Disorder of lipoprotein metabolism, unspecified; Z12.5 Encounter for screening for malignant neoplasm of prostate
CPT/HCPCS: 36415; 80053; 80061; 82570; 84153; 85027

== ENCOUNTER 2024-02-12 07:22 | Outpatient (REF) | payer MEDICARE, MEDICAID, SELFPAY ==
[2024-02-12 11:34] LABS: Estimated Average Glucose 91 mg/dL; Hemoglobin A1c % 4.8 % (<6.0)
== END 2024-02-12 07:23 | disposition home or self-care (01) ==
LOC: HO.10HDL 07:22
PROVIDERS: Visit Provider Nurse Practitioner Psychiatric/Mental Health
DX: Z79.899 Other long term (current) drug therapy (principal)
CPT/HCPCS: 36415; 83036

== ENCOUNTER 2024-04-30 10:26 | Outpatient (AMB) | payer MEDICARE, MEDICAID, SELFPAY ==
[2024-04-30 10:30] VITALS: BP 110/68; PULSE 98; O2SAT 98; BMI 24.9
--- NOTE | 2024-04-30 10:31 | A.OFFVIS_ITS ---
Intake Vital Signs 04/30/24 10:30 Height 5 ft 7 in Weight 159 lb 2 oz BMI 24.9 BP 110/68 Blood Pressure Location Lt brachial Position Sitting Pulse 98 Pulse Source Pulse Oximeter Pulse Oximetry (%) 98 Oxygen Delivery Method Room Air Intake Visit Reasons: [facility] G0439 Quality Assurance Monitor Required: No Accompanied by: Self / Same As Patient Allergies erythromycin base Allergy (Intermediate, Verified 04/30/24 10:38) Gastrointestinal Upset Penicillins Allergy (Intermediate, Verified 04/30/24 10:38) Hives Medication List - Last Reconciled 04/30/24 by Jude Hurley PA-C albuterol sulfate 90 mcg/actuation (ProAir HFA) 2 puffs inhalation Q6H PRN 30 days amlodipine 2.5 mg PO DAILY 30 days blood pressure monitor As directed buspirone 30 mg PO BID cholecalciferol (vitamin D3) 25 mcg PO DAILY clomipramine 150 mg PO BEDTIME clomipramine 25 mg PO BID fluvoxamine 250 mg PO DAILY hydroxyzine HCl 25 mg PO BID melatonin 3 mg PO BEDTIME PRN pantoprazole 40 mg PO BID quetiapine 25 mg PO BEDTIME PRN quetiapine 400 mg PO BEDTIME risperidone 4 mg PO BID 30 days valacyclovir (Valtrex) 1,000 mg PO BID 7 days Do you need a note to return to daycare/school/sports/work: No HPI [facility] G0439 HPI Details Patient is a 53-year-old male here today for subcu heart annual wellness visit. Patient has a past history significant for OCD, hypertension, anxiety. Patient reports his psychiatrist would like him to have a EKG likely due to being on long-term use of antipsychotic medication [facility]- discussed patient's [place] of care. Also discussed end of life planning and has a MOLST filled out today. Colorectal cancer screening: Colonoscopy done in 2021, tubular adenoma polyp found, repeat 5 years Vaccines: Up-to-date with COVID vaccine, tetanus vaccine Laboratory Tests 01/10/24 02/12/24 07:42 07:31 Creatinine 1.17 Hemoglobin A1c % 4.8 Cholesterol 206 H LDL Cholesterol, C alc 134 H PSA Screen 0.64 HPI Comments History of Present Illness Details reviewed past medical history- yes reviewed surgical / hospitalization history- yes reviewed current medications- yes reviewed family history- yes home safety throw rugs? grab bars? raised toilet seat? working smoke detectors? activities of daily living difficulty bathing or showering? difficulty dressing? difficulty using the toilet? difficulty getting in and out of bed? difficulty walking? receives help from other person's with any of the above tasks? instrumental activities of daily living uses telephone - gets to place out of walking distance- go shopping for groceries- repairs own meals- does own minor home maintenance- does own laundry- does own housework- manages own money- currently takes medication- end of life planning discussed advanced directives- yes advanced directives on file? discussed wishes expressed in advanced directives. fall risk have you had any falls with injuries in the past year? have you had 2 or more falls in the past year? fall risk assessment: [facility] Medical History Deepthi-Carmichael tear COVID-19 vaccine series completed Recurrent cold sores Asthma Anxiety HTN (hypertension) OCD (obsessive compulsive disorder) Screening for prostate cancer Screening for hyperlipidemia Screening for colon cancer Screening for diabetes mellitus Surgical History Hx of colonoscopy History of esophagogastroduodenoscopy (EGD) Family History Father No problems noted. Mother No problems noted. Other Mental health disorder Social History Housing: House Alcohol intake: former Patient Tobacco Use Status: Former Tobacco user Tobacco use type: Cigarette Years Smoked: 10 e-Cigarette/Vaping Use: Never Used service: No Current occupational status: unemployed and disabled Cognitive needs: No Hearing needs: No Vision needs: No Questionnaire Medicare Wellness Checkup What gender do you identify with?: male During the past 4 weeks, how much have you been bothered by emotional problems such as feeling anxious, depressed, irritable, sad or downhearted, and blue?: quite a bit During the past 4 weeks, has your physical & emotional health limited your social activities with family, friends, neighbors, or groups?: slightly During the past 4 weeks, how much bodily pain have you generally had?: mild pain During the past 4 weeks, was someone available to help you if you needed & wanted help?: yes, as much as I wanted During the past 4 weeks, what was the hardest physical activity you could do for at least 2 minutes?: light Can you get to places out of walking distance without help? (For eg., can you travel alone on buses, taxis or drive your car?): Yes Can you go shopping for groceries or clothes without someone's help?: Yes Can you prepare your own meals?: Yes Can you do your housework without help?: Yes Because of any health problems, do you need the help of another person with your personal care needs such as eating, bathing, dressing or getting around the house?: No Can you handle your own money without help?: Yes During the past 4 weeks, how would you rate your health in general?: good During the past 4 weeks how have things been going for you?: pretty well Are you having difficulties driving your car?: no Do you always fasten your seat belt when you are in a car?: yes, usually During past 4 weeks, have you been bothered by the following: never: Falling or dizzy when standing up, Sexual problems?, Trouble eating well?, Teeth or denture problems? and Problems using the telephone? and sometimes: Tiredness or fatigue? Have you fallen 2 or more times in the past year?: No Are you afraid of falling?: No Are you a smoker?: no During the past 4 weeks, how many drinks of wine, beer, or other alcoholic beverages did you have?: 2-5 drinks per week Do you exercise for about 20 minutes 3 or more times a week?: no, I usually do not exercise this much Have you been given information to help with the following?: no: Hazards in your house that might hurt you? and no: Keeping track of your medications? How often do you have trouble taking medicines the way you have been told to take them?: I always take medicine as prescribed How confident are you that you can control & manage most of your health problems?: somewhat confident What is your race?: White Mini Mental State Exam (MMSE) Orientation What is the (year) (season) (date) (day) (month)?: year Where are we (state) (county) (town or city) (hospital) (floor)?: town or city Attention & Calculation (CHOOSE ONE) Spell WORLD backwards (DLROW): 5 letters Score Score: 7 Activity of Daily Living Bathing - sponge bath, tub bath or shower: receives no assistance (gets in/out by self, if usual bathing means Dressing - getting clothes from closets & drawers, including inner/outer garments & fasteners.: gets clothes & gets completely dressed without help Toileting - going to the 'toilet room' for urine/bowel elimination & cleaning self/arranging clothes: goes to toilet room, cleans self, arranges clothes without help Transfer: moves in & out of bed and chair without help (may use support object) Continence: controls urination/bowel movements completely by self Feeding: feeds self without help Total Score: 0 Information obtained from: patient Using telephone: independent Traveling: independent Shopping: independent Preparing meals: independent Housework: independent Taking medicine: independent Managing money: independent PHQ-9 Over the last 2 weeks, how often have you been bothered by any of the following problems? 1. Little interest or pleasure in doing things: several days 2. Feeling down, depressed, or hopeless: several days 3. Trouble falling or staying asleep, or sleeping too much: several days 4. Feeling tired or having little energy: several days 5. Poor appetite or overeating: not at all 6. Feeling bad about yourself - or that you are a failure or have let yourself or your family down: several days 7. Trouble concentrating on things, such as reading the newspaper or watching television: several days 8. Moving or speaking so slowly that other people could have noticed. Or the opposite - being so fidgety or restless that you have been moving around a lot more than usual: not at all 9. Thoughts that you would be better off or of hurting yourself in some way: not at all Total score: 6 Depression Screening Interpretation: Positive Depression Screening Follow-up: Existing condition and In treatment Depression Screening Done: Yes 02716 - PHQ-9 Billing: Yes Source: Developed by Drs. Margarito Chavarria, Christiana Cardona, Khris Macias and colleagues, with an educational amee from [employer]. PHQ-2/PHQ-9 PHQ-2 Over the last 2 weeks, how often have you been bothered by any of the following problems? 1. Little interest or pleasure in doing things: several days 2. Feeling down, depressed, or hopeless: several days Total score: 2 If score is 3 or greater, continue 3. Trouble falling or staying asleep, or sleeping too much: several days 4. Feeling tired or having little energy: several days 5. Poor appetite or overeating: not at all 6. Feeling bad about yourself - or that you are a failure or have let yourself or your family down: several days 7. Trouble concentrating on things, such as reading the newspaper or watching television: several days 8. Moving or speaking so slowly that other people could have noticed. Or the opposite - being so fidgety or restless that you have been moving around a lot more than usual: not at all 9. Thoughts that you would be better off or of hurting yourself in some way: not at all Total score: 6 0-4 None-Minimal, 5-9 Mild, 10-14 Moderate, 15-19 Moderately Severe, 20-27 Severe Source: Developed by Drs. Margarito Chavarria, Christiana Cardona, Khris Macias and colleagues, with an educational amee from [employer]. Thrive Questionnaire Date Thrive assessed: 04/30/24 I am a: Patient What is your living situation today?: I have a steady place to live Within the past 12 months, did the food you bought not last and you didn't have the money to get more?: Never true Within the past 12 months, did you worry whether your food would run out before you got money to buy more?: Never true Do you have trouble paying for medicines?: No Do you have trouble getting transportation to medical appointments?: No Do you have trouble paying your heating and electricity bill?: No Do you have trouble taking care of your child, family member or friend?: No Do you have trouble with day-to-day activities such as bathing, preparing meals, shopping, managing finances, etc.?: No Are you currently unemployed and looking for a job?: No Are you interested in more education?: No Please select the resources that you would like help with: None Currently or been in a relationship where the following occur: No concerns reported THRIVE Score: 0 ABDULLAHI-7 AMB Questionnaire ABDULLAHI-7 Date ABDULLAHI - 7 assessed: 04/30/24 Feeling nervous, anxious, or on edge: 0 = Not at all Not being able to stop or control worryin = Not at all Worrying too much about different things: 0 = Not at all Trouble relaxin = Not at all Being so restless that it is hard to sit still: 0 = Not at all Becoming easily annoyed or irritable: 0 = Not at all Feeling afraid as if something awful might happen: 0 = Not at all Total ABDULLAHI-7 score (0-4 normal; 5-9 mild; 10-14 moderate; 15-21 severe): 0 Source: Developed by Drs. Margarito Chavarria, Christiana Cardona, Khris Macias and colleagues, with an educational amee from [employer]. Physical Exam Vital Signs: Last Vital Signs Pulse 98 04/30/24 10:30 BP 110/68 04/30/24 10:30 Pulse Ox 98 04/30/24 10:30 Oxygen Delivery Method Room Air 04/30/24 10:30 BMI result Body Mass Index 24.9 HEENT Other: hearing screening whisper test- pass Eyes Other: vision screening- 2019 OS OD OU Other: urinary incontinence? no Neuro Other: balance Romberg- normal tandem walk test- able walk-in turned test- able rise from sit to stand- within 2 seconds Office Procedures Flu Questionnaire Does the patient have a severe egg allergy?: No Does the patient have severe life threatening allergies?: No Does the patient have a fever or illness today?: No Has the patient ever had Guillain-[place] Syndrome?: No Has the patient ever had any past reaction to a flu shot?: No Immunizations Fluarix Triv [id number] (PF) 45 mcg (15 mcg x 3)/0.5 mL IM syringe Performing Provider: Jude Hurley PA-C [facility] [place] [facility] Administered by: ANA Park on 04/30/24 10:58 Dose Route Admin Location Dispensed Lot Number Expiration Date [facility] History Instructor 0.5 mL IM Left Deltoid 0.5 mL [id number] 12/08/24 [id number] [employer] VIS Given Date VIS Provided VIS Publication Date 04/30/24 Single Vaccine 21 Eligibility Eligibility Date Funding Source Not VF Eligible 04/30/24 Private Assessment & Plan Assessment & Plan (1) Medicare annual wellness visit, subsequent: Code(s): Z00.00 - Encounter for general adult medical examination without abnormal findings Plan: As per HPI Orders: Orders Lipid Panel Today E78.9 - Disorder of lipoprotein metabolism, unspecified Microalbumin, Random (w Creat) Today I10 - Essential (primary) hypertension Comprehensive [facility]. Panel Fast Today I10 - Essential (primary) hypertension Complete Blood Count no Diff Today I10 - Essential (primary) hypertension ECG 12 lead EKG Today I10 - Essential (primary) hypertension, Z79.899 - Other prison (current) drug therapy Prostate Specific Antigen Scr Today I10 - Essential (primary) hypertension, Z12.5 - Encounter for screening for malignant neoplasm of prostate Influenza [id number] Immunization Today Z23 - Encounter for immunization Quality Reporting (2019) Depression/Bipolar (159/160/161/177) PHQ-9: Total score: 6 Coding Level of Care Code Medicare Subsequent (G0439) Diagnoses Medicare annual wellness visit, subsequent Z00.00 CPT Codes Advance Care Planning - Time spent: 1-15 minutes, on File ([id number]) Additional Codes PHQ-9 - 19462 - PHQ-9 Billing: Yes ([id number]) Advance Care Planning Advance Care Planning discussion: Completed/Scanned Date of discussion: 04/30/24 Forms completed: MOLST Time spent: 1-15 minutes, on File Actual minutes spent: 4
== END 2024-04-30 11:03 | disposition home or self-care (01) ==
PROVIDERS: PCP Physician Assistant; Visit Provider Physician Assistant
DX: Z00.00 Encounter for general adult medical examination without abnormal findings (principal)

== ENCOUNTER → 2024-04-30 10:26 | Outpatient (BNVA) | payer MEDICARE, MEDICAID, SELFPAY | PROVIDERS: PCP Physician Assistant; Visit Provider Physician Assistant | DX: Z00.00 Encounter for general adult medical examination without abnormal findings (principal); Z23 Encounter for immunization; I10 Essential (primary) hypertension | CPT/HCPCS: 90471; 90656; 96127 ==

== ENCOUNTER → 2024-05-02 14:35 | Outpatient (REF) | payer MEDICARE, MEDICAID, SELFPAY ==
--- NOTE | 2024-05-02 14:43 | ECG_ITS ---
Test Reason : HTN Blood Pressure : / mmHG Vent. Rate : 094 BPM Atrial Rate : 094 BPM P-R Int : 158 ms QRS Dur : 094 ms QT Int : 366 ms P-R-T Axes : 063 070 074 degrees QTc Int : 457 ms Normal sinus rhythm Normal ECG When compared with ECG of 06-DEC-2021 11:03, No significant change was found Referred By: Jude Hurley Electronically Signed By:MONA ANDRE MD
== END ==
LOC: HO.CARD 14:35
PROVIDERS: PCP Physician Assistant; Visit Provider Physician Assistant
DX: I10 Essential (primary) hypertension (principal); Z79.899 Other long term (current) drug therapy
CPT/HCPCS: 93005

== ENCOUNTER → 2024-05-02 14:43 | Outpatient (BNV) | payer MEDICARE, MEDICAID, SELFPAY | PROVIDERS: PCP Physician Assistant; Visit Provider Internal Medicine Cardiovascular Disease | DX: I10 Essential (primary) hypertension (principal) | CPT/HCPCS: 93010 ==

== ENCOUNTER 2024-07-15 12:37 | Outpatient (AMB) | payer MEDICARE, MEDICAID, SELFPAY ==
[2024-07-15 13:03] VITALS: BP 118/72; PULSE 95; TEMP 36.2; O2SAT 99; BMI 24.7
--- NOTE | 2024-07-15 13:03 | A.OFFPC_ITS ---
Vital Signs 07/15/24 13:03 07/15/24 13:07 07/15/24 13:09 Height 5 ft 7 in Weight 158 lb BMI 24.7 BP 118/72 122/80 142/82 H Blood Pressure Location Lt brachial Lt brachial Rt brachial Position Sitting Standing Supine Pulse 95 Pulse Source Pulse Oximeter Temp 97.1 F Temp Source Temporal Artery Scan Pulse Oximetry (%) 99 Oxygen Delivery Method Room Air Intake Visit Reasons: Orthotics Blood Pressure Check Transitional Living Specialist Required: No Accompanied by: Self / Same As Patient Allergies erythromycin base Allergy (Intermediate, Verified 07/15/24 13:14) Gastrointestinal Upset Penicillins Allergy (Intermediate, Verified 07/15/24 13:14) Hives Medication List - Last Reconciled 07/15/24 by Jude Hurley PA-C albuterol sulfate 90 mcg/actuation (ProAir HFA) 2 puffs inhalation Q6H PRN 30 days amlodipine 2.5 mg PO DAILY 30 days blood pressure monitor As directed buspirone 30 mg PO BID cholecalciferol (vitamin D3) 25 mcg PO DAILY clomipramine 150 mg PO BEDTIME clomipramine 25 mg PO BID fluvoxamine 250 mg PO DAILY hydroxyzine HCl 25 mg PO BID melatonin 3 mg PO BEDTIME PRN pantoprazole 40 mg PO BID quetiapine 25 mg PO BEDTIME PRN quetiapine 400 mg PO BEDTIME risperidone 4 mg PO BID 30 days valacyclovir (Valtrex) 1,000 mg PO BID 7 days Tobacco use date assessed: 07/15/24 Dental Screening Dental Screen Date: 07/15/24 Did you have a dental visit in the last 12 months?: Yes Did you have a dental problem in the last 6 months where you did not have access to dental care?: No Was dental information given to patient?: Patient has dentist HPI Orthotics Blood Pressure Check HPI Details Patient is a 54-year-old male here today for follow-up visit..? Patient has a past medical history significant for obsessive-compulsive disorder, hype rtension, anxiety. OCD: He is followed by a psychiatrist whom is making some med adjustments. He only on reports he will be hospitalized to make some med adjustments in his OCD. There is some believe that his psychiatric medications could be causing fluctuations in his blood pressure. In review of literature both Risperdal and clomipramine both can cause orthostatic hypotension .. Hypertension:? He does not regularly check his blood pressure at home.? There were some concerns of high blood pressure at his psychiatrist office. Today in office blood pressure acceptable in sitting position though in supine position actually a bit higher (of note did report feeling anxiety at that time) We have decreased his amlodipine dose to 2.5 mg previously. [facility] Medical History Deepthi-Carmichael tear COVID-19 vaccine series completed Recurrent cold sores Asthma Anxiety HTN (hypertension) OCD (obsessive compulsive disorder) Screening for prostate cancer Screening for hyperlipidemia Screening for colon cancer Screening for diabetes mellitus Surgical History Hx of colonoscopy History of esophagogastroduodenoscopy (EGD) Family History Father No problems noted. Mother No problems noted. Other Mental health disorder Social History Housing: House Alcohol intake: former Patient Tobacco Use Status: Former Tobacco user Tobacco use type: Cigarette Years Smoked: 10 e-Cigarette/Vaping Use: Never Used service: No Current occupational status: unemployed and disabled Cognitive needs: No Hearing needs: No Vision needs: No Questionnaire PHQ-9 Over the last 2 weeks, how often have you been bothered by any of the following problems? 1. Little interest or pleasure in doing things: several days 2. Feeling down, depressed, or hopeless: several days 3. Trouble falling or staying asleep, or sleeping too much: several days 4. Feeling tired or having little energy: several days 5. Poor appetite or overeating: not at all 6. Feeling bad about yourself - or that you are a failure or have let yourself or your family down: several days 7. Trouble concentrating on things, such as reading the newspaper or watching television: several days 8. Moving or speaking so slowly that other people could have noticed. Or the opposite - being so fidgety or restless that you have been moving around a lot more than usual: not at all 9. Thoughts that you would be better off or of hurting yourself in some way: not at all Total score: 6 Depression Screening Interpretation: Positive Depression Screening Follow-up: Existing condition and In treatment Depression Screening Done: Yes 25536 - PHQ-9 Billing: Yes Source: Developed by Drs. Margarito Chavarria, Christiana Cardona, Khris Macias and colleagues, with an educational amee from [employer]. Thrive Questionnaire Date Thrive assessed: 07/15/24 I am a: Patient What is your living situation today?: I have a steady place to live Within the past 12 months, did the food you bought not last and you didn't have the money to get more?: Never true Within the past 12 months, did you worry whether your food would run out before you got money to buy more?: Never true Do you have trouble paying for medicines?: No Do you have trouble getting transportation to medical appointments?: No Do you have trouble paying your heating and electricity bill?: No Do you have trouble taking care of your child, family member or friend?: No Do you have trouble with day-to-day activities such as bathing, preparing meals, shopping, managing finances, etc.?: No Are you currently unemployed and looking for a job?: No Are you interested in more education?: No Please select the resources that you would like help with: None Currently or been in a relationship where the following occur: No concerns reported THRIVE Score: 0 AUDIT C Alcohol Use Questionnaire (AUDIT-C) 1. How often do you have a drink containing alcohol?: Never 3. How often do you have six or more drinks on one occasion?: Never Total Score: 0 Score Reviewed/Action Taken: No ADBULLAHI-7 AMB Questionnaire ABDULLAHI-7 Date ABDULLAHI - 7 assessed: 07/15/24 Feeling nervous, anxious, or on edge: 0 = Not at all Not being able to stop or control worryin = Not at all Worrying too much about different things: 0 = Not at all Trouble relaxin = Not at all Being so restless that it is hard to sit still: 0 = Not at all Becoming easily annoyed or irritable: 0 = Not at all Feeling afraid as if something awful might happen: 0 = Not at all Total ABDULLAHI-7 score (0-4 normal; 5-9 mild; 10-14 moderate; 15-21 severe): 0 Source: Developed by Drs. Margarito Chavarria, Christiana Cardona, Khris Macias and colleagues, with an educational amee from [employer]. ABDULLAHI-7 Assessment Billing ABDULLAHI-7 Assessment Tool: ABDULLAHI-7 Assessment 94126 Review of Systems Const Denies headache(s) Eyes Denies loss of vision ENT Denies vertigo, Denies dizziness, Denies headache(s) and Denies sore throat Card Denies chest pain, Denies leg edema and Denies lightheadedness Resp Denies cough, Denies hemoptysis and Denies wheezing GI Denies abdominal pain, Denies melena, Denies constipation, Denies diarrhea and Denies vomiting Denies dysuria, Denies urinary frequency and Denies urinary urgency Musc Denies arthralgias, Denies joint swelling, Denies numbness and Denies tingling Neuro Denies Abnormal speech present, Denies behavioral changes, Denies vertigo, Denies dizziness, Denies headache(s), Denies loss of vision, Denies memory loss, Denies numbness and Denies tingling Psych Denies anxiety, Denies behavioral changes, Denies depression, Denies memory loss and Denies panic attacks Boogie/Lymph Denies easy bleeding and Denies easy bruising Aller/Immun Denies wheezing Physical exam (Primary Care) Vital Signs: Last Vital Signs Temp 97.1 F 07/15/24 13:03 Pulse 95 07/15/24 13:03 BP 142/82 H 07/15/24 13:09 Pulse Ox 99 07/15/24 13:03 Oxygen Delivery Method Room Air 07/15/24 13:03 BMI result Body Mass Index 24.7 Tobacco/Smoking Status: Tobacco use Status Tobacco use date assessed 07/15/24 07/15/24 13:11 Patient Tobacco Use Status Former Tobacco user 07/15/24 13:04 Tobacco use type Cigarette 07/15/24 13:04 e-Cigarette/Vaping Use Never Used 07/15/24 13:04 PHQ-9: PHQ-9 Score PHQ-9: Total score 6 07/15/24 13:11 Depression Screening Interpretation: Positive Depression Screening Follow-up: Existing condition and In treatment Thrive Assessment: Date of Thrive Assessment Date Thrive assessed 07/15/24 07/15/24 13:11 Currently or been in a relationship where the following occur: No concerns reported Const General: healthy appearing, no acute distress, alert and awake Nutritional Appearance: well nourished Orientation/consciousness: oriented to person, oriented to place and oriented to time HENMT Ears: TM's normal bilaterally General nose exam: Normal nasal mucous membranes and turbinates present Eyes Conjunctivae: conjunctivae normal Sclerae: sclerae normal Pupils: Equal, round and reactive pupils present Neck Neck: Yes no lymphadenopathy and Yes no JVD Thyroid: Thyroid normal Carotids: no bruits Resp Effort & Inspection: normal respiratory effort and not tachypneic Auscultation: no crackles, no rales, no rhonchi and no wheezes Cardio Rate: regular rate Rhythm: regular rhythm Heart sounds: no murmurs and normal S1 and S2 GI Palpation (GI): Soft to palpation, nontender, no hepatomegaly and no splenomegaly Auscultation: normal bowel sounds Skin General skin exam: no rashes or lesions noted and dry skin Neuro General: oriented to person, oriented to place and oriented to time Cranial nerves: Yes Equal, round and reactive pupils present Speech: No Abnormal speech present Gait exam (Neuro): Normal gait present Motor exam (neuro): no tremor noted Extrem Right upper extremity: full ROM Left upper extremity: full ROM Right lower extremity: full ROM; no edema Left lower extremity: full ROM; no edema Psych Mental Status: mental status grossly normal Speech and movement: Normal speech and movement present Affect: normal affect Attitude: cooperative Thought process: Normal thought process present Coding Level of Care Code Est Pt Level 4 (67345) Diagnoses Hypertension, unspecified type I10 Hypertension type: unspecified Obsessive-compulsive disorder, unspecified type F42.9 Obsessive-compulsive disorder type: unspecified Additional Codes ABDULLAHI-7 Assessment Billing - ABDULLAHI-7 Assessment Tool: ABDULLAHI-7 Assessment 28932 ([id number]) PHQ-9 - 05201 - PHQ-9 Billing: Yes ([id number]) Assessment & Plan Assessment & Plan (1) Hypertension: Code(s): I10 - Essential (primary) hypertension Category: Medical Qualifiers: Hypertension type: unspecified Qualified Code(s): I10 - Essential (prim jyoti) hypertension Plan: Patient's blood pressure acceptable today in office. Supine position seems that blood pressure slightly higher. He continues on amlodipine 2.5 mg. We did review his psychiatric medication and both Risperdal and clomipramine both have side effects of possible orthostatic hypotension. He will be re- evaluated in inpatient setting to make med adjustments for his psychiatric medication. (2) OCD (obsessive compulsive disorder): Code(s): F42.9 - Obsessive-compulsive disorder, unspecified Category: Medical Qualifiers: Obsessive-compulsive disorder type: unspecified Qualified Code(s): F42.9 - Obsessive-compulsive disorder, unspecified Plan: As above
[2024-07-15 13:07] VITALS: BP 122/80
[2024-07-15 13:09] VITALS: BP 142/82
== END 2024-07-15 13:29 | disposition home or self-care (01) ==
PROVIDERS: PCP Physician Assistant; Visit Provider Physician Assistant
DX: I10 Essential (primary) hypertension (principal); F42.9 Obsessive-compulsive disorder, unspecified

== ENCOUNTER → 2024-07-15 12:37 | Outpatient (BNVA) | payer MEDICARE, MEDICAID, SELFPAY | PROVIDERS: PCP Physician Assistant; Visit Provider Physician Assistant | DX: I10 Essential (primary) hypertension (principal); F42.9 Obsessive-compulsive disorder, unspecified | CPT/HCPCS: 96127; 99212 ==

== ENCOUNTER 2024-10-28 09:30 | Outpatient (AMB) | payer MEDICARE, MEDICAID, SELFPAY ==
--- NOTE | 2024-10-28 09:34 | MHC.PC.OV ---
Vital Signs 10/28/24 09:51 10/28/24 10:08 Height 5 ft 7 in Weight 150 lb 2 oz BMI 23.5 BP 92/48 L 106/70 Blood Pressure Location Lt brachial Position Sitting Pulse 91 Pulse Source Pulse Oximeter Temp 97.1 F Temp Source Temporal Artery Scan Pulse Oximetry (%) 99 Oxygen Delivery Method Room Air Intake Visit Reasons: f/u HTN Snuff Container Inspector Required: No Accompanied by: Self / Same As Patient Allergies erythromycin base Allergy (Intermediate, Verified 10/28/24 09:59) Gastrointestinal Upset Penicillins Allergy (Intermediate, Verified 10/28/24 09:59) Hives Medication List - Last Reconciled 10/28/24 by Jude Hurley PA-C albuterol sulfate 90 mcg/actuation (ProAir HFA) 2 puffs inhalation Q6H PRN 30 days amlodipine 2.5 mg PO DAILY 30 days blood pressure monitor As directed cholecalciferol (vitamin D3) 25 mcg PO DAILY fluoxetine 80 mg PO lithium carbonate mg PO pantoprazole 40 mg PO BID quetiapine 25 mg PO BEDTIME PRN quetiapine 400 mg PO BEDTIME rosuvastatin 5 mg PO DAILY valacyclovir (Valtrex) 1,000 mg PO BID 7 days Tobacco use date assessed: 07/15/24 Dental Screening Dental Screen Date: 07/15/24 HPI f/u HTN HPI Details Patient is a 54-year-old male here today for follow-up visit..? Patient has a past medical history significant for obsessive-compulsive disorder, hypertension, anxiety. OCD: He has recently had a hospitalization for psych med evaluation. He has been taken off of a lot of his psychiatric medication including Risperdal, clomipramine, fluvoxamine, buspirone. Has been placed on lithium 300 mg and feels his OCD is much better. Of note has lost 8 lb since last office visit \ .. Hypertension:? Patient's blood pressure today on low side. He does report he is feeling fine though does have some dizziness when standing up from sitting position. PLAN: Will hold amlodipine 2.5 and advised to monitor blood pressure at home. [facility] Medical History Deepthi-Carmichael tear COVID-19 vaccine series completed Recurrent cold sores Asthma Anxiety HTN (hypertension) OCD (obsessive compulsive disorder) Screening for prostate cancer Screening for hyperlipidemia Screening for colon cancer Screening for diabetes mellitus Surgical History Hx of colonoscopy History of esophagogastroduodenoscopy (EGD) Family History Father No problems noted. Mother No problems noted. Other Mental health disorder Social History Housing: House Alcohol intake: former Patient Tobacco Use Status: Former Tobacco user Tobacco use type: Cigarette Years Smoked: 10 e-Cigarette/Vaping Use: Never Used service: No Current occupational status: unemployed and disabled Cognitive needs: No Hearing needs: No Vision needs: No Questionnaire PHQ-9 Over the last 2 weeks, how often have you been bothered by any of the following problems? 1. Little interest or pleasure in doing things: several days 2. Feeling down, depressed, or hopeless: several days Source: Developed by Drs. Margarito Chavarria, Christiana Cardona, Khris Macias and colleagues, with an educational amee from [employer]. Thrive Questionnaire Date Thrive assessed: 07/15/24 ABDULLAHI-7 AMB Questionnaire ABDULLAHI-7 Date ABDULLAHI - 7 assessed: 07/15/24 Source: Developed by Drs. Margarito Chavarria, Khris Issa and colleagues, with an educational amee from [employer]. Review of Systems Const Denies headache(s) Eyes Denies loss of vision ENT Denies vertigo, Denies dizziness, Denies headache(s) and Denies sore throat Card Denies chest pain, Denies leg edema and Denies lightheadedness Resp Denies cough, Denies hemoptysis and Denies wheezing GI Denies abdominal pain, Denies melena, Denies constipation, Denies diarrhea and Denies vomiting Denies dysuria, Denies urinary frequency and Denies urinary urgency Musc Denies arthralgias, Denies joint swelling, Denies numbness and Denies tingling Neuro Denies Abnormal speech present, Denies behavioral changes, Denies vertigo, Denies dizziness, Denies headache(s), Denies loss of vision, Denies memory loss, Denies numbness and Denies tingling Psych Denies anxiety, Denies behavioral changes, Denies depression, Denies memory loss and Denies panic attacks Boogie/Lymph Denies easy bleeding and Denies easy bruising Aller/Immun Denies wheezing Physical exam (Primary Care) Vital Signs: Last Vital Signs Temp 97.1 F 10/28/24 09:51 Pulse 91 10/28/24 09:51 BP 106/70 10/28/24 10:08 Pulse Ox 99 10/28/24 09:51 Oxygen Delivery Method Room Air 10/28/24 09:51 BMI result Body Mass Index 23.5 Tobacco/Smoking Status: Tobacco use Status Tobacco use date assessed 07/15/24 10/28/24 09:35 Patient Tobacco Use Status Former Tobacco user 10/28/24 09:35 Tobacco use type Cigarette 10/28/24 09:35 e-Cigarette/Vaping Use Never Used 10/28/24 09:35 Thrive Assessment: Date of Thrive Assessment Date Thrive assessed 07/15/24 10/28/24 09:35 Const General: healthy appearing, no acute distress, alert and awake Nutritional Appearance: well nourished Orientation/consciousness: oriented to person, oriented to place and oriented to time HENMT Ears: TM's normal bilaterally General nose exam: Normal nasal mucous membranes and turbinates present Eyes Conjunctivae: conjunctivae normal Sclerae: sclerae normal Pupils: Equal, round and reactive pupils present Neck Neck: Yes no lymphadenopathy and Yes no JVD Thyroid: Thyroid normal Carotids: no bruits Resp Effort & Inspection: normal respiratory effort and not tachypneic Auscultation: no crackles, no rales, no rhonchi and no wheezes Cardio Rate: regular rate Rhythm: regular rhythm Heart sounds: no murmurs and normal S1 and S2 GI Palpation (GI): Soft to palpation, nontender, no hepatomegaly and no splenomegaly Auscultation: normal bowel sounds Skin General skin exam: no rashes or lesions noted and dry skin Neuro General: oriented to person, oriented to place and oriented to time Cranial nerves: Yes Equal, round and reactive pupils present Speech: No Abnormal speech present Gait exam (Neuro): Normal gait present Motor exam (neuro): no tremor noted Extrem Right upper extremity: full ROM Left upper extremity: full ROM Right lower extremity: full ROM; no edema Left lower extremity: full ROM; no edema Psych Mental Status: mental status grossly normal Speech and movement: Normal speech and movement present Affect: normal affect Attitude: cooperative Thought process: Normal thought process present Coding Level of Care Code Est Pt Level 4 (30313) Diagnoses Hypertension, unspecified type I10 Hypertension type: unspecified Obsessive-compulsive disorder, unspecified type F42.9 Obsessive-compulsive disorder type: unspecified Mixed hyperlipidemia E78.2 Hyperlipidemia type: mixed hyperlipidemia Assessment & Plan Assessment & Plan (1) Hypertension: Code(s): I10 - Essential (primary) hypertension Category: Medical Qualifiers: Hypertension type: unspecified Qualified Code(s): I10 - Essential (primary) hypertension Plan: Patient's blood pressure noted to be on the low side. We did discuss holding amlodipine 2.5 and monitoring blood pressure to see if they are still in need for antihypertensive medication here.. Supine position seems that blood pressure slightly higher. He continues on amlodipine 2.5 mg. He has been taken off of a lot of his mental health medication including Risperdal, clomipramine, fluvoxamine, buspirone and hydroxyzine. (2) OCD (obsessive compulsive disorder): Code(s): F42.9 - Obsessive-compulsive disorder, unspecified Category: Medical Qualifiers: Obsessive-compulsive disorder type: unspecified Qualified Code(s): F42.9 - Obsessive-compulsive disorder, unspecified Plan: Patient now on low dose of lithium and have in his renal function checked by a psychiatrist. He feels his OCD symptoms have resolved. (3) HLD (hyperlipidemia): Code(s): E78.5 - Hyperlipidemia, unspecified Category: Medical Qualifiers: Hyperlipidemia type: mixed hyperlipidemia Qualified Code(s): E78.2 - Mixed hyperlipidemia Plan: Patient was started on low-dose rosuvastatin 5 mg while in the hospital recently. Will continue to follow fasting lipid panel with goal LDL to be below 130 Patient Instructions: Goal: Blood pressure to be below 140/90 and above 100/68. LDL to be below 130 Barriers: Adherence to physical activity and healthy eating habits
[2024-10-28 09:51] VITALS: BP 92/48; PULSE 91; TEMP 36.2; O2SAT 99; BMI 23.5
[2024-10-28 10:08] VITALS: BP 106/70
--- OUTSIDE RECORDS SUMMARY | 2024-10-28 10:26 | XMS_ITS | Patient Health Record ---
Author Organization [facility] Address [address] [place] [id number] Care Team Providers Care Manufacturing Controller Name Role Phone Jude Hurley Primary Care Provider Unavailab Margarito Jones Unavailable [phone] Reason For Referral No Information Medications Medication SIG (Take, Route, Frequency, Duration) Notes Start Date End Date Status amLODIPine Besylate 5 MG Oral for 90 Active fluvoxaMINE Maleate 100 MG Oral for 30 Active clomiPRAMINE HCl 25 MG 1 capsule Oral bi d with 150 mg at hs Active QUEtiapine Fumarate 25 MG TAKE 1/2-1 TAB LET BY MOUTH EVERY MORNING NEEDED FOR OCD/MOOD Oral as hs prn 400 mg po bedtime Active risperiDONE 4 MG TAKE ONE TAB TWICE D AILY AND 1/2 EVERY MORNING NEEDED. Oral for 28 Active busPIRone HCl 30 MG Oral for 30 Active Albuterol Sulfate HFA 108 (90 Base) MCG/ACT INHALE 2 PUFFS BY MOUTH EVERY 6 HOURS NEEDED FOR SHORTNESS FARRIS BREATH OR WHEEZING Inhalation for 25 Active Dulcolax 5 MG 1 Orally QOD Act mitch Vitamin D3 25 MCG (1000 UT) 1 capsule Or ally Once a day for 30 day(s) Active Pantoprazole Sodium 40 MG TAKE 1 TABLET BY MOUTH EVERY DAY for 30 Active Melatonin 3 MG 1 tablet at bedtime as needed Orally Once a day for 30 day(s) Active Immunizations Vaccine Route Administration Date Status Comme nts Influenza Unknown 09/01/2021 Refused Social History Tobacco Use: Social History Observation Description Date Details (start date - stop date) Former Smoker NA - NA Tobacco Use/Smoking Question Answer Notes Patient is a former smoker How long has it been since you last smoked? > 10 years Alcohol Screen Question Answer Notes Did you have a drink containing alcohol in the p ast year? No Points 0 Interpretation Negative Section Notes: Stopped smoking in 1998; no alcohol Stopped smoking in 1998; no alcohol Problems Problem Type SNOMED Code ICD Code Onset Dates Problem Status W/U Status Risk Notes Problem 370841549 Encounter for screening for malignant neoplasm of colon (Z12.11) Active confirmed Problem 480070017 History of adenomatous polyp of colon (Z86.010) Active confirmed Problem 371928142762470 Preprocedural examination (Z01.818) Active confirmed Problem 75369564 Constipation, unspecified constipation type (K59.00) Active confirmed Problem Diverticulosis of colon (037201714) Diverticulosis of colon (K57.30) Active confirmed Problem 46695124 Esophageal dysphagia (R13.19) Active confirmed Problem 651088692 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 Plan Of Treatment Future Test Test Name Order Date COLONOSCOPY 09/01/2021 COLONOSCOPY 10/09/2021 Insurance Providers Payer Name Payer Address Payer Phone Subscriber Number Group Number Insured Name Patient Relationship to Insured Coverage Start Date Coverage End Date MEDICARE OF [place] [address] [place] [address] [id number] DEIRDRE DIAZ Self - patient is the insured MEDICAID OF [facility] [address] [place] [address] [id number] DEIRDRE DIAZ Self - patient is the insured Medical (General) History Medical History History ICD Code Asthma Lifelong OCD Hypertension Denies OK,DM,CVA,renal disease Anxiety EGD at [facility] in 2015 was reportedly negati ve HPV with penile warts removed Screening colonoscopy in Sep revealed 2 tubular adenomas that were removed. However, the prep for that was quite poor and he underwent a followup colonoscopy in February of 2022 with removal of only a hyperplastic polyp after a 2 day prep resulted in an excellent bowel clean out. Esophageal obstruction in [facility] 2022 treated with upper endoscopy at [facility]. He apparently had an associated mucosal esophageal tear but did not require surgery and a CT scan of the chest was negative at that time. A followup barium swallow on August 09 revealed no abnormality of the esophagus nor any sign of an esophageal obstruction with a barium tablet. Surgical History Surgery Date(Month/Year)
== END 2024-10-28 10:13 | disposition home or self-care (01) ==
LOC: HO.HMCH 09:30
PROVIDERS: PCP Physician Assistant; Visit Provider Physician Assistant
DX: I10 Essential (primary) hypertension (principal); F42.9 Obsessive-compulsive disorder, unspecified; E78.2 Mixed hyperlipidemia

== ENCOUNTER → 2024-10-28 09:30 | Outpatient (BNVA) | payer MEDICARE, MEDICAID, SELFPAY | PROVIDERS: PCP Physician Assistant; Visit Provider Physician Assistant | DX: I10 Essential (primary) hypertension (principal); F42.9 Obsessive-compulsive disorder, unspecified; E78.2 Mixed hyperlipidemia | CPT/HCPCS: 99212 ==

== ENCOUNTER 2025-01-28 07:35 | Outpatient (REF) | payer MEDICARE, MEDICAID, SELFPAY ==
--- OUTSIDE RECORDS SUMMARY | 2025-01-28 07:38 | XMS_ITS | Patient Health Record ---
Author Organization [facility] Address [address] [place] [id number] Care Team Providers Care Pressure Testing Technician Name Role Phone Jude Hurley Primary Care Provider Unavailab Margarito Jones Unavailable [phone] Reason For Referral No Information Medications Medication [...] Problem Status W/U Status Risk Notes Problem 909312286 Encounter for screening for malignant neoplasm of colon (Z12.11) Active confirmed Problem 094569539 History of adenomatous polyp of colon (Z86.010) Active confirmed Problem [id number] Preprocedural examination (Z01.818) Active confirmed Problem 11391355 Constipation, unspecified constipation type (K59.00) Active confirmed Problem Diverticulosis of colon (865943647) Diverticulosis of colon (K57.30) Active confirmed Problem 16849462 Esophageal dysphagia (R13.19) Active confirmed Problem 280532147 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 Plan Of Treatment Future Test Test Name Order Date COLONOSCOPY 09/01/2021 COLONOSCOPY 10/09/2021 Insurance Providers Payer Name Payer Address Payer Phone Subscriber Number Group Number Insured Name Patient Relationship to Insured Coverage Start Date Coverage End Date MEDICARE [place] [address] [place] [id number] DEIRDRE DIAZ Self - patient is the insured MEDICAID OF [facility] [address] [place] [address] [id number] DEIRDRE DIAZ Self - patient is the insured Medical (General) History Medical History History ICD Code Asthma Lifelong OCD Hypertension Denies [place],DM,CVA,renal disease Anxiety EGD at [facility] in 2015 was reportedly negati ve HPV with penile warts removed Screening colonoscopy in Sep revealed 2 tubular adenomas that were removed. However, the prep for that was quite poor and he underwent a followup colonoscopy in February of 2022 with removal of only a hyperplastic polyp after a 2 day prep resulted in an excellent bowel clean out. Esophageal obstruction in [facility] 2022 treated with upper endoscopy at [facility]. He apparently had an associated mucosal esophageal tear but did not require surgery and a CT scan of the chest was negative at that time. A followup barium swallow on August 09 revealed no abnormality of the esophagus nor any sign of an esophageal obstruction with a barium tablet. Surgical History Surgery Date(Month/Year)
--- OUTSIDE RECORDS SUMMARY | 2025-01-28 07:38 | XMS_ITS | Clinical Summary ---
Author Organization [facility] Address [address] [place], [place] [id number] Phone Care Team Providers Care Solution Spec Name Role Phone Jude Hurley Primary Care Provider + Social History Tobacco Use Types Packs/Day Years Used Date Smoking Tobacco: Never Assessed Education Answer Date Recorded Are you interested in more education? Not on babar e 09/12/2024 Are you concerned about learning? Not on file 09/12/2024 No 09/12/2024 No 09/12/2024 Digital Access Answer Date Recorded No 09/12/2024 No 09/12/2024 Reliable internet access at home? Not on file 09/12/2024 Device with a working camera? Not on file Sex and Gender Information Value Date Recorded Sex Assigned at Not on file Legal Sex Male 7:14 PM EST Gender Identity Not on file Sexual Orientation Not on file Plan of Treatment Not on file Medical Devices Not on file Insurance [place]IC[place] & [facility] & B HEALTH MEDICARE PART A & B [facility] [place] [id number] Care Teams Solution Spec Relationship Specialty Start Date End Date Jude Hurley PA [address] [place] [id number] PCP - General Physician Primary Teacher 09/12/24 Additional Source Comments The information contained in this document represents components of the legal health record. It is not the complete legal health record.[facility]
[2025-01-28 11:16] LABS: Hematocrit 41.2 % (42.0-52.0); Hemoglobin 13.6 g/dl (14.0-18.0); Mean Corpuscular HGB Conc 33.0 g/dl (31.0-36.0); Mean Corpuscular Hemoglobin 29.1 pg (27.0-33.0); Mean Corpuscular Volume 88.0 fL (80.0-98.0); NRBC Abs Auto 0.000 X10*3/uL (0.0-0.012); NRBC Pct Auto 0.0 /100WBC (0.0-0.2); Platelet Count 222 X10*3/uL (160-400); Red Blood Count 4.68 X10*6/uL (4.60-5.80); White Blood Count 8.5 X10*3/uL (4.8-10.8)
[2025-01-28 11:30] LABS: Alanine Aminotransferase 47 U/L (0-40); Albumin Level 4.4 g/dL (3.5-5.0); Alkaline Phosphatase 94 U/L (39-117); Anion Gap 11 (12-20); Aspartate Amino Transferase 40 U/L (5-37); Blood Urea Nitrogen 12 mg/dL (9-16); Calcium 9.0 mg/dL (8.4-10.2); Carbon Dioxide 28 mmol/L (22-29); Chloride 104 mmol/L (96-108); Cholesterol 162 mg/dL (<200); Estimated Glomerular Filt Rate > 60; HDL Cholesterol 48 mg/dL (>40); Potassium 3.8 mmol/L (3.3-5.1); Sodium 139 mmol/L (135-145); Total Protein 6.6 g/dL (6.5-8.0); Triglycerides 131 mg/dL (<150)
[2025-01-28 11:47] LABS: Microalbum/Creatinine Ratio Ur 5.5 ug/mg cr (<30)
== END 2025-01-28 07:36 | disposition home or self-care (01) ==
LOC: HO.10HDL 07:35
PROVIDERS: Visit Provider Physician Assistant
DX: Z12.5 Encounter for screening for malignant neoplasm of prostate (principal); I10 Essential (primary) hypertension; F42.9 Obsessive-compulsive disorder, unspecified; E78.9 Disorder of lipoprotein metabolism, unspecified; E78.2 Mixed hyperlipidemia; B37.0 Candidal stomatitis; Z87.891 Personal history of nicotine dependence
CPT/HCPCS: 36415; 80053; 80061; 82043; 82570; 84153; 85027; 96127; 99212

== ENCOUNTER 2025-01-28 11:39 | Outpatient (AMB) | payer MEDICARE, MEDICAID, SELFPAY ==
--- NOTE | 2025-01-28 11:44 | A.OFFPC_ITS ---
Vital Signs 3 01/28/25 11:46 Height 5 ft 7 in Weight 152 lb BMI 23.8 BP 108/64 Blood Pressure Location Lt brachial Position Sitting Pulse 75 Pulse Oximetry (%) 97 Intake Visit Reasons: Follow-up hypertension Automotive Refinisher Required: No Accompanied by: Self / Same As Patient Allergies erythromycin base Allergy (Intermediate, Verified 01/28/25 11:52) Gastrointestinal Upset Penicillins Allergy (Intermediate, Verified 01/28/25 11:52) Hives Medication List - Last Reconciled 01/28/25 by Jude Hurley PA-C albuterol sulfate 90 mcg/actuation (ProAir HFA) 2 puffs inhalation Q6H PRN 30 days amlodipine 2.5 mg PO DAILY 30 days blood pressure monitor As directed cholecalciferol (vitamin D3) 25 mcg PO DAILY fluoxetine 80 mg PO lithium carbonate mg PO pantoprazole 40 mg PO BID quetiapine 25 mg PO BEDTIME PRN quetiapine 400 mg PO BEDTIME rosuvastatin 5 mg PO DAILY Tobacco use date assessed: 01/28/25 Dental Screening Dental Screen Date: 01/28/25 Did you have a dental visit in the last 12 months?: No Did you have a dental problem in the last 6 months where you did not have access to dental care?: No Was dental information given to patient?: No HPI Follow-up hypertension 2 HPI0 Details Patient is a 54-year-old male here today for follow-up visit..? Patient has a past medical history significant for obsessive-compulsive disorder, hypertension, anxiety. Concern-- The patient reports tongue sensitivity and ulceration, initially triggered by sugary foods and now aggravated by various foods. The ulceration is attributed to nocturnal teeth grinding, exacerbated by the use of a mouthguard. He has been advised to consult a dentist for further evaluation. .. Elevated liver enzyme: The patient has elevated liver enzymes, which may be related to his cholesterol medication, rosuvastatin. He has been advised to discontinue the medication and monitor liver function in future labs. The patient does not consume alcohol and quit smoking in 1998. OCD: Patient continues to follow psychiatrist. Has been placed on lithium 300 mg and feels his OCD is much better. \ .. Hypertension:? Patient's blood pressure today on low side. He did restart amlodipine for short period of time though blood pressure remains low. He will discontinue low-dose amlodipine. PFS Medical History Deepthi-Carmichael tear COVID-19 vaccine series completed Recurrent cold sores Asthma Anxiety HTN (hypertension) OCD (obsessive compulsive disorder) Screening for prostate cancer Screening for hyperlipidemia Screening for colon cancer Screening for diabetes mellitus Surgical History Hx of colonoscopy History of esophagogastroduodenoscopy (EGD) Family History Father No problems noted. Mother No problems noted. Other Mental health disorder Social History Housing: House Alcohol intake: former Patient Tobacco Use Status: Former Tobacco user Tobacco use type: Cigarette Years Smoked: 10 e-Cigarette/Vaping Use: Never Used service: No Current occupational status: unemployed and disabled Cognitive needs: No Hearing needs: No Vision needs: No Questionnaire PHQ-9 Over the last 2 weeks, how often have you been bothered by any of the following problems? 1. Little interest or pleasure in doing things: not at all 2. Feeling down, depressed, or hopeless: not at all 3. Trouble falling or staying asleep, or sleeping too much: not at all 4. Feeling tired or having little energy: not at all 5. Poor appetite or overeating: not at all 6. Feeling bad about yourself - or that you are a failure or have let yourself or your family down: not at all 7. Trouble concentrating on things, such as reading the newspaper or watching television: not at all 8. Moving or speaking so slowly that other people could have noticed. Or the opposite - being so fidgety or restless that you have been moving around a lot more than usual: not at all 9. Thoughts that you would be better off or of hurting yourself in some way: not at all Total score: 0 49318 - PHQ-9 Billing: Yes Source: Developed by Drs. Margarito Chavarria, Christiana Cardona, Khris Macias and colleagues, with an educational amee from [employer]. Thrive Questionnaire Date Thrive assessed: 01/28/25 I am a: Patient What is your living situation today?: I have a steady place to live Within the past 12 months, did the food you bought not last and you didn't have the money to get more?: Never true Within the past 12 months, did you worry whether your food would run out before you got money to buy more?: Never true Do you have trouble paying for medicines?: No Do you have trouble getting transportation to medical appointments?: No Do you have trouble paying your heating and electricity bill?: No Do you have trouble taking care of your child, family member or friend?: No Do you have trouble with day-to-day activities such as bathing, preparing meals, shopping, managing finances, etc.?: No Are you currently unemployed and looking for a job?: I choose not to answer this question Are you interested in more education?: No Please select the resources that you would like help with: None Currently or been in a relationship where the following occur: No concerns reported THRIVE Score: 0 AUDIT C Alcohol Use Questionnaire (AUDIT-C) 1. How often do you have a drink containing alcohol?: Monthly or less 2. How many drinks containing alcohol do you have on a typical day when you are drinking?: 1 or 2 3. How often do you have six or more drinks on one occasion?: Never Total Score: 1 ABDULLAHI-7 AMB Questionnaire ABDULLAHI-7 Date ABDULLAHI - 7 assessed: 01/28/25 Feeling nervous, anxious, or on edge: 0 = Not at all Not being able to stop or control worryin = Not at all Worrying too much about different things: 0 = Not at all Trouble relaxin = Not at all Being so restless that it is hard to sit still: 0 = Not at all Becoming easily annoyed or irritable: 1 = Several days Feeling afraid as if something awful might happen: 0 = Not at all Total ABDULLAHI-7 score (0-4 normal; 5-9 mild; 10-14 moderate; 15-21 severe): 1 Source: Developed by Drs. Margarito Chavarria, Christiana Cardona, Khris Macias and colleagues, with an educational amee from [employer]. ABDULLAHI-7 Assessment Billing ABDULLAHI-7 Assessment Tool: ABDULLAHI-7 Assessment 37860 Review of Systems Const Denies headache(s) Eyes Denies loss of vision ENT Denies vertigo, Denies dizziness, Denies headache(s) and Denies sore throat Card Denies chest pain, Denies leg edema and Denies lightheadedness Resp Denies cough, Denies hemoptysis and Denies wheezing GI Denies abdominal pain, Denies melena, Denies constipation, Denies diarrhea and Denies vomiting Denies dysuria, Denies urinary frequency and Denies urinary urgency Musc Denies arthralgias, Denies joint swelling, Denies numbness and Denies tingling Neuro Denies Abnormal speech present, Denies behavioral changes, Denies vertigo, Denies dizziness, Denies headache(s), Denies loss of vision, Denies memory loss, Denies numbness and Denies tingling Psych Denies anxiety, Denies behavioral changes, Denies depression, Denies memory loss and Denies panic attacks Boogie/Lymph Denies easy bleeding and Denies easy bruising Aller/Immun Denies wheezing Physical exam (Primary Care) Vital Signs: Last Vital Signs Pulse 75 01/28/25 11:46 BP 108/64 01/28/25 11:46 Pulse Ox 97 01/28/25 11:46 BMI result Body Mass Index 23.8 Tobacco/Smoking Status: Tobacco use Status Tobacco use date assessed 01/28/25 01/28/25 11:49 Patient Tobacco Use Status Former Tobacco user 01/28/25 11:49 Tobacco use type Cigarette 01/28/25 11:49 e-Cigarette/Vaping Use Never Used 01/28/25 11:49 PHQ-9: PHQ-9 Score PHQ-9: Total score 0 01/28/25 11:57 Thrive Assessment: Date of Thrive Assessment Date Thrive assessed 01/28/25 01/28/25 11:49 Currently or been in a relationship where the following occur: No concerns reported Const General: healthy appearing, no acute distress, alert and awake Nutritional Appearance: well nourished Orientation/consciousness: oriented to person, oriented to place and oriented to time HENMT Ears: TM's normal bilaterally General nose exam: Normal nasal mucous membranes and turbinates present Mouth/tongue images: 2 1. SMALL SHALLOW ULCERATION NOTED AT THE LEFT SIDE OF THE TONGUE Eyes Conjunctivae: conjunctivae normal Sclerae: sclerae normal Pupils: Equal, round and reactive pupils present Neck Neck: Yes no lymphadenopathy and Yes no JVD Thyroid: Thyroid normal Carotids: no bruits Resp Effort & Inspection: normal respiratory effort and not tachypneic Auscultation: no crackles, no rales, no rhonchi and no wheezes Cardio Rate: regular rate Rhythm: regular rhythm Heart sounds: no murmurs and normal S1 and S2 GI Palpation (GI): Soft to palpation, nontender, no hepatomegaly and no splenomegaly Auscultation: normal bowel sounds Skin General skin exam: no rashes or lesions noted and dry skin Neuro General: oriented to person, oriented to place and oriented to time Cranial nerves: Yes Equal, round and reactive pupils present Speech: No Abnormal speech present Gait exam (Neuro): Normal gait present Motor exam (neuro): no tremor noted Extrem Right upper extremity: full ROM Left upper extremity: full ROM Right lower extremity: full ROM; no edema Left lower extremity: full ROM; no edema Psych Mental Status: mental status grossly normal Speech and movement: Normal speech and movement present Affect: normal affect Attitude: cooperative Thought process: Normal thought process present Coding Level of Care Code Est Pt Level 4 (26886) Diagnoses Hypertension, unspecified type I10 Hypertension type: unspecified Obsessive-compulsive disorder, unspecified type F42.9 Obsessive-compulsive disorder type: unspecified Mixed hyperlipidemia E78.2 Hyperlipidemia type: mixed hyperlipidemia Thrush B37.0 Additional Codes ABDULLAHI-7 Assessment Billing - ABDULLAHI-7 Assessment Tool: ABDULLAHI-7 Assessment 56224 ([id number]) PHQ-9 - 64048 - PHQ-9 Billing: Yes ([id number]) Assessment & Plan Assessment & Plan (1) Hypertension: Code(s): I10 - Essential (primary) hypertension Category: Medical Qualifiers: Hypertension type: unspecified Qualified Code(s): I10 - Essential (primary) hypertension Plan: Patient's blood pressure noted to be on the low side. Will hold off on amlodipine 2.5 mg as blood pressures has been stable without medication. He has been taken off of a lot of his mental health medication including Risperdal, clomipramine, fluvoxamine, buspirone and hydroxyzine. (2) OCD (obsessive compulsive disorder): Code(s): F42.9 - Obsessive-compulsive disorder, unspecified Category: Medical Qualifiers: Obsessive-compulsive disorder type: unspecified Qualified Code(s): F 42.9 - Obsessive-compulsive disorder, unspecified Plan: Patient now on low dose of lithium and have in his renal function checked by a psychiatrist. He feels his OCD symptoms have resolved. (3) HLD (hyperlipidemia): Code(s): E78.5 - Hyperlipidemia, unspecified Category: Medical Qualifiers: Hyperlipidemia type: mixed hyperlipidemia Qualified Code(s): E78.2 - Mixed hyperlipidemia Plan: Patient was started on low-dose rosuvastatin 5 mg while in the hospital recently. Noted to have elevated AST and ALT. Will hold off on rosuvastatin 5 mg will continue lifestyle and dietary changes. Will recheck lipid and liver labs upon next visit.. Will continue to follow fasting lipid panel with goal LDL to be below 130 (4) Thrush: Code(s): B37.0 - Candidal stomatitis Category: Medical Plan: The patient is advised to consult a dentist for evaluation of tongue ulceration, potentially caused by nocturnal teeth grinding. A nystatin mouthwash has been prescribed to address possible fungal involvement. Orders: Orders 2 Complete Blood Count no Diff Today E78.2 - Mixed hyperlipidemia Lipid Panel Today E78.2 - Mixed hyperlipidemia Comprehensive [place]. Panel Fast Today E78.2 - Mixed hyperlipidemia Medications: New 2 nystatin swish and spit 10 mL PO DAILY 60 mL 0RF 6 days B37.0 - Candidal stomatitis Discontinued 2 rosuvastatin Discontinued Reason: Doctor's Order 5 mg PO DAILY 90 tabs 1RF E78.9 - Disorder of lipoprotein metabolism, unspecified On Hold 2 amlodipine Hold Comment: Doctor's Order 2.5 mg PO DAILY 30 days 30 tabs 1RF I10 - Essential (primary) hypertension
[2025-01-28 11:46] VITALS: BP 108/64; PULSE 75; O2SAT 97; BMI 23.8
== END 2025-01-28 12:07 | disposition home or self-care (01) ==
LOC: HO.HMCH 11:40
PROVIDERS: PCP Physician Assistant; Visit Provider Physician Assistant
DX: I10 Essential (primary) hypertension (principal); F42.9 Obsessive-compulsive disorder, unspecified; E78.2 Mixed hyperlipidemia; B37.0 Candidal stomatitis

== ENCOUNTER 2025-05-05 09:00 | Outpatient (AMB) | payer MEDICARE, MEDICAID, SELFPAY ==
--- NOTE | 2025-05-05 09:06 | A.OFFVIS_ITS ---
Intake Vital Signs 05/05/25 09:09 Height 5 ft 7 in Weight 151 lb 8 oz BMI 23.7 BP 108/60 Blood Pressure Location Lt brachial Position Sitting Pulse 96 Pulse Source Pulse Oximeter Temp 97.3 F Temp Source Temporal Artery Scan Pulse Oximetry (%) 99 Oxygen Delivery Method Room Air Intake Visit Reasons: DENTONV G0439 Intake Note: Patient is here for an Annual Wellness Visit. Mold Filler Plastic Dolls Required: No Rectangular Tank Cooper: Rectangular Tank Cooper offered & declined Accompanied by: Self / Same As Patient Allergies erythromycin base Allergy (Intermediate, Verified 05/05/25 09:26) Gastrointestinal Upset Penicillins Allergy (Intermediate, Verified 05/05/25 09:26) Hives Medication List - Last Reconciled 05/05/25 by Jude Hurley PA-C amlodipine 2.5 mg PO DAILY 30 days Held on 01/28/25. Instructions: Doctor's Order blood pressure monitor As directed cholecalciferol (vitamin D3) 25 mcg PO DAILY fluoxetine 80 mg PO lithium carbonate mg PO pantoprazole 40 mg PO BID quetiapine 25 mg PO BEDTIME PRN quetiapine 400 mg PO BEDTIME HPI SWV G0439 HPI Details Patient is a 55-year-old male here today for an annual wellness visit? Patient has a past medical history significant for obsessive-compulsive disorder, hypertension, anxiety. Today has a few concerns--> reports he has been noticing urinary urgency over the last few months. He also explains that he has had numbness and tingling over the outside of both of his feet. 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 He also reports having signs and symptoms of a sinus infection that usually has been to him in the fall. He usually gets better with a course of an antibiotic. Today we discussed patient's ute of care, end of life planning(MOLST) and comprehensive care plan which was scanned into patient's documents. Colorectal cancer screening: Colonoscopy done in 2021, tubular adenoma polyp found, repeat 5 years Vaccines: Up-to-date with COVID vaccine, tetanus vaccine HPI Comments History of Present Illness Details reviewed past medical history- yes reviewed surgical / hospitalization history- yes reviewed current medications- yes reviewed family history- yes home safety throw rugs? grab bars? raised toilet seat? working smoke detectors? activities of daily living difficulty bathing or showering? difficulty dressing? difficulty using the toilet? difficulty getting in and out of bed? difficulty walking? receives help from other person's with any of the above tasks? instrumental activities of daily living uses telephone - gets to place out of walking distance- go shopping for groceries- repairs own meals- does own minor home maintenance- does own laundry- does own housework- manages own money- currently takes medication- end of life planning discussed advanced directives- yes advanced directives on file? discussed wishes expressed in advanced directives. fall risk have you had any falls with injuries in the past year? have you had 2 or more falls in the past year? fall risk assessment: [facility] Medical History Deepthi-Carmichael tear COVID-19 vaccine series completed Recurrent cold sores Asthma Anxiety HTN (hypertension) OCD (obsessive compulsive disorder) Screening for prostate cancer Screening for hyperlipidemia Screening for colon cancer Screening for diabetes mellitus Surgical History Hx of colonoscopy History of esophagogastroduodenoscopy (EGD) Family History Father No problems noted. Mother No problems noted. Other Mental health disorder Social History Housing: House Alcohol intake: current Alcohol intake frequency: a few times a week Patient Tobacco Use Status: Former Tobacco user Tobacco use type: Cigarette Years Smoked: 10 e-Cigarette/Vaping Use: Never Used service: No Current occupational status: unemployed and disabled Cognitive needs: No Hearing needs: No Vision needs: No Questionnaire Medicare Wellness Checkup What [age] your [age]?: 65-69 (55) What gender do you identify with?: male During the past 4 weeks, how much have you been bothered by emotional problems such as feeling anxious, depressed, irritable, sad or downhearted, and blue?: not at all During the past 4 weeks, has your physical & emotional health limited your social activities with family, friends, neighbors, or groups?: not at all During the past 4 weeks, how much bodily pain have you generally had?: mild pain During the past 4 weeks, was someone available to help you if you needed & wanted help?: yes, as much as I wanted During the past 4 weeks, what was the hardest physical activity you could do for at least 2 minutes?: moderate Can you get to places out of walking distance without help? (For eg., can you travel alone on buses, taxis or drive your car?): Yes Can you go shopping for groceries or clothes without someone's help?: Yes Can you prepare your own meals?: No Can you do your housework without help?: Yes Because of any health problems, do you need the help of another person with your personal care needs such as eating, bathing, dressing or getting around the house?: No Can you handle your own money without help?: Yes During the past 4 weeks, how would you rate your health in general?: good During the past 4 weeks how have things been going for you?: pretty well Are you having difficulties driving your car?: no Do you always fasten your seat belt when you are in a car?: yes, usually During past 4 weeks, have you been bothered by the following: never: Falling or dizzy when standing up, Sexual problems?, Trouble eating well?, Teeth or denture problems? and Problems using the telephone? and seldom: Tiredness or fatigue? Have you fallen 2 or more times in the past year?: No Are you afraid of falling?: No Are you a smoker?: no During the past 4 weeks, how many drinks of wine, beer, or other alcoholic beverages did you have?: 1 drink or less per week Do you exercise for about 20 minutes 3 or more times a week?: yes, all the time Have you been given information to help with the following?: yes: Hazards in your house that might hurt you? and no: Keeping track of your medications? How often do you have trouble taking medicines the way you have been told to take them?: I always take medicine as prescribed How confident are you that you can control & manage most of your health problems?: somewhat confident What is your race?: White Mini Mental State Exam (MMSE) Orientation What is the (year) (season) (date) (day) (month)?: year Where are we (state) (county) (town or city) (hospital) (floor)?: town or city Attention & Calculation (CHOOSE ONE) Spell WORLD backwards (DLROW): 5 letters Score Score: 7 Activity of Daily Living Bathing - sponge bath, tub bath or shower: receives no assistance (gets in/out by self, if usual bathing means Dressing - getting clothes from closets & drawers, including inner/outer gar ments & fasteners.: gets clothes & gets completely dressed without help Toileting - going to the 'toilet room' for urine/bowel elimination & cleaning self/arranging clothes: goes to toilet room, cleans self, arranges clothes without help Transfer: moves in & out of bed and chair without help (may use support object) Continence: controls urination/bowel movements completely by self Feeding: feeds self without help Total Score: 0 Information obtained from: patient Using telephone: independent Traveling: independent Shopping: independent Preparing meals: independent Housework: independent Taking medicine: independent Managing money: independent PHQ-9 Over the last 2 weeks, how often have you been bothered by any of the following problems? 1. Little interest or pleasure in doing things: not at all 2. Feeling down, depressed, or hopeless: not at all 3. Trouble falling or staying asleep, or sleeping too much: not at all 4. Feeling tired or having little energy: several days 5. Poor appetite or overeating: not at all 6. Feeling bad about yourself - or that you are a failure or have let yourself or your family down: not at all 7. Trouble concentrating on things, such as reading the newspaper or watching television: not at all 8. Moving or speaking so slowly that other people could have noticed. Or the opposite - being so fidgety or restless that you have been moving around a lot more than usual: not at all 9. Thoughts that you would be better off or of hurting yourself in some way: not at all Total score: 1 Depression Screening Interpretation: Positive Depression Screening Done: Yes Source: Developed by Drs. Margarito Chavarria, Christiana Cardona, Khris Macias and colleagues, with an educational amee from [employer]. Thrive Questionnaire Date Thrive assessed: 01/28/25 I am a: Patient What is your living situation today?: I have a steady place to live Within the past 12 months, did the food you bought not last and you didn't have the money to get more?: Never true Within the past 12 months, did you worry whether your food would run out before you got money to buy more?: Never true Do you have trouble paying for medicines?: No Do you have trouble getting transportation to medical appointments?: No Do you have trouble paying your heating and electricity bill?: No Do you have trouble taking care of your child, family member or friend?: No Do you have trouble with day-to-day activities such as bathing, preparing meals, shopping, managing finances, etc.?: No Are you currently unemployed and looking for a job?: I choose not to answer this question Are you interested in more education?: No Please select the resources that you would like help with: None Currently or been in a relationship where the following occur: No concerns reported THRIVE Score: 0 ABDULLAHI-7 AMB Questionnaire ABDULLAHI-7 Date ABDULLAHI - 7 assessed: 01/28/25 Source: Developed by Drs. Margarito Chavarria, Christiana Cardona, Khris Macias and colleagues, with an educational amee from [employer]. Physical Exam Vital Signs: Last Vital Signs Temp 97.3 F 05/05/25 09:09 Pulse 96 05/05/25 09:09 BP 108/60 05/05/25 09:09 Pulse Ox 99 05/05/25 09:09 Oxygen Delivery Method Room Air 05/05/25 09:09 BMI result Body Mass Index 23.7 HEENT Other: hearing screening whisper test- passed Eyes Other: vision screening- 20 20 OS OD OU -using corrective lenses Other: urinary incontinence? no Neuro Other: balance Romberg- normal tandem walk test- able walk-in turned test- able rise from sit to stand- within 2 seconds Assessment & Plan Assessment & Plan (1) Medicare annual wellness visit, subsequent: Code(s): Z00.00 - Encounter for general adult medical examination without abnormal findings Plan: As per HPI (2) Sinus infection: Code(s): J32.9 - Chronic sinusitis, unspecified Qualifiers: Sinusitis location: frontal Chronicity: chronic Qualified Code(s): J32.1 - Chronic frontal sinusitis Plan: Patient has been signs symptoms of a sinus infection thus will supply patient with a 5 day course of doxycycline to help clear up symptoms. (3) Neuropathy: Code(s): G62.9 - Polyneuropathy, unspecified Plan: Patient's signs and symptoms of bilateral feet numbness and tingling most consistent with a neuropathy of his lower extremities. Will send for EMG testing to [facility] for neuropathy. He does admit to sitting for long periods of time and will try to walk more. We did discuss the possibility of doing physical therapy for low back disc issue. (4) Urinary urgency: Code(s): R39.15 - Urgency of urination Plan: Patient does report urinary urgency over the last few months. He has not had any incontinence episodes. Of note did note an elevation in his PSA from 2023- 2024. Will recheck PSA and urinalysis to [facility] for any continued elevation in his PSA. Orders: Orders NE nerve conduction velocity Today G62.9 - Polyneuropathy, unspecified NE electromyogram (EMG) Today G62.9 - Polyneuropathy, unspecified Prostate Specific Antigen Scr Today R39.15 - Urgency of urination, Z12.5 - Encounter for screening for malignant neoplasm of prostate UA CC w/rflx Micro + Cult Today R30.0 - Dysuria, R39.15 - Urgency of urination Medications: New doxycycline monohydrate 100 mg PO BID 10 caps 0RF 5 days J32.1 - Chronic frontal sinusitis Quality Reporting (2019) Depression/Bipolar (159/160/161/177) PHQ-9: Total score: 1 Coding Level of Care Code Medicare Subsequent (G0439) Est Pt Level 3 (42912) Diagnoses Medicare annual wellness visit, subsequent Z00.00 Chronic frontal sinusitis J32.1 Sinusitis location: frontal Chronicity: chronic Neuropathy G62.9 Urinary urgency R39.15 CPT Codes Advance Care Planning - Advance Care Planning discussion: On file, no changes ([id number]) Advance Care Planning - Time spent: 1-15 minutes, on File ([id number]) Advance Care Planning Advance Care Planning discussion: On file, no changes Date of discussion: 05/05/25 Forms completed: MOLST Time spent: 1-15 minutes, on File Actual minutes spent: 1
[2025-05-05 09:09] VITALS: BP 108/60; PULSE 96; TEMP 36.3; O2SAT 99; BMI 23.7
--- OUTSIDE RECORDS SUMMARY | 2025-05-05 09:39 | XMS_ITS | Clinical Summary ---
Author Organization [facility] Address [address] [place], [place] [id number] Phone Care Team Providers Care Door Closer Name Role Phone Jude Hurley Primary Care [...] [place] A & [facility] A & B [facility] [place] [id number] Care Teams Door Closer Relationship Specialty Start Date End Date Jude Hurley PA [address] [place] [phone] PCP - General Physician Graining Operator 09/12/24 Additional Source Comments The information contained in this document represents components of the legal health record. It is not the complete legal health record.[facility]
== END 2025-05-05 09:55 | disposition home or self-care (01) ==
LOC: HO.HMCH 09:00
PROVIDERS: PCP Physician Assistant; Visit Provider Physician Assistant
DX: Z00.00 Encounter for general adult medical examination without abnormal findings (principal); J32.1 Chronic frontal sinusitis; G62.9 Polyneuropathy, unspecified; R39.15 Urgency of urination

== ENCOUNTER → 2025-05-05 09:00 | Outpatient (BNVA) | payer MEDICARE, MEDICAID, SELFPAY | PROVIDERS: PCP Physician Assistant; Visit Provider Physician Assistant | DX: J32.1 Chronic frontal sinusitis (principal); G62.9 Polyneuropathy, unspecified; R39.15 Urgency of urination; R30.0 Dysuria | CPT/HCPCS: 99212 ==